=== PATIENT | female | born 1995 | race Caucasian/White ===

== ENCOUNTER 2022-07-20 13:53 | Emergency (ER) | payer SELFPAY ==
--- OUTSIDE RECORDS SUMMARY | 2022-07-20 14:02 | XMS REPORT | Continuity of Care Document ---
:1995 Author Organization [facility] t Address [address] [place] [address] Dr. Santiago [address] [place] [address] Care Team Providers Name Role Phone ALLISON GALVIN Primary Care Physician Unavailable ALLISON GALVIN Attending Clinician Unavailable Allison Galvin MD Attending Clinician Doctor Unassigned, [place] Attending Clinician Unavailable Harry Garcia CRNA Attending Clinician Magdalena Lyon MD Attending Clinician 2, [facility] Attending Clinician Unavailable Cassidy Weir MD Attending Clinician Ultrasound, [facility] Attending Clinician Unavailable Gabbi Escalante MD Attending Clinician 1, [facility] Us Room Attending Clinician Unavailable Zaheer Ramsay MD Attending Clinician ALLISON GALVIN Admitting Clinician Unavailable Allison Galvin MD Admitting Clinician Payers Payer Name Policy Type Policy Number Effective Date Expiration Date S hailey [facility] [id number] 2021 00:00:00 Problems Condition Condition Condition Status Onset Resolution Last Treating Co mments Source Name Details Category Date Date Treatment Clinician Date Term Term Disease Active Univers 9-30 ity of 00:00: [address] Liveborn Liveborn Disease Active Overview: Un sho infant, of , of 9-30 Formattin ity of [place] 00:00: [place] of this [place] , , 00 note Me dical born in born in might be [facility] different by vaginal by vaginal from the delivery delivery original. Vacuum assisted delivery Disease Active Overview: Univers complicate complicate 03-18 Formattin ity of d by d by 00:00: g of this [place] 00 note Medical abnormalit abnormalit might be Branch y y different from the original. Pylectaes is of right kidney (5.6cm).F /u and Growth scheduled for 32 weeks on 05/18 38 weeks 38 weeks Disease Active Unive rs gestation gestation 02-25 ity of of of 00:00: [place] 00 [facility] Branch Supervisio Supervisio Disease Active U nivers n of n of 02-25 ity of high-risk high-risk 00:00: Mari s [facility] with with Branch insufficie insufficie nt nt care in care in third third trimester trimester Allergies, Adverse Reactions, Alerts Allergy Allergy Status Severity Reaction(s) Onset Inactive Treating Comm ents Source Name Type Date Date Clinician NO KNOWN Drug Active Univers ALLERGIE Class ity of S [facility] Social History Social Habit Start Date Stop Date Quantity Comments Source ASSERTION [facility] Exposure to Not sure [facility] SARS-CoV-2 [facility] (event) [place] Alcohol intake 2021-07-29 2021-07-29 Ex-drinker [facility] 00:00:00 00:00:00 (finding) [facility] Tobacco use and 2021-02-25 2021-02-25 Never used Universit y of exposure 00:00:00 00:00:00 [facility] History of 2020-11-16 Smoker [facility] tobacco use 00:00:00 [facility] Sex Ass[birth year] At [birth year] Universit y of 00:00:00 00:00:00 [facility] Smoking Status Start Date Stop Date Source Former smoker 2021-02-25 00:00:00 2021-02-25 00:00:00 [facility] Medications Ordered Filled Start Stop Current Ordering Indication Dosage Frequency Signature Comments Components Source Medication Medication Date Date Medication? Clinician (SIG) Name Name lisdexamfet 2020-09 Yes 50mg Take 50 mg Univers amine 1-10 by mouth ity of (VYVANSE) 13:23: every [place] 50 mg 42 morning. Medical capsule Branch lisdexamfet 2020-09 Yes 50mg Take 50 mg Univers amine 1-10 by mouth ity of (VYVANSE) 13:23: every [place] 50 mg 42 morning. Medical capsule Branch norethindro 2020-09 Yes [id number] .35mg Take 1 Univers ne 0.35 mg 1-10 tablet by ity of tablet 00:00: mouth [place] 00 daily. Medical Branch norethindro 2020-09 Yes [id number] .35mg Take 1 Univers ne 0.35 mg 1-10 tablet by ity of tablet 00:00: mouth [place] 00 daily. Medical Branch 2020-09 Yes Take by [employer] vit 0-20 mouth. ity of calc,iron,f 16:25: [place] [id number] Medical ( Branch VITAMIN ORAL) 2020-09 Yes Take by [employer] vit 0-20 mouth. ity of calc,iron,f 16:25: [address] ( Branch VITAMIN ORAL) 2020-09 Yes Take by [employer] vit 0-20 mouth. ity of calc,iron,f 16:25: [address] ( Branch VITAMIN ORAL) 2020-09 Yes Take by [employer] vit 0-02 mouth. ity of calc,iron,f 14:52: [address] ( Branch VITAMIN ORAL) 2020-09 Yes Take by [employer] vit 0-02 mouth. ity of calc,iron,f 14:52: [address] ([facility] Branch VITAMIN ORAL) ibuprofen 2020-09 Yes [id number] 600mg Take 1 Univers 600 mg 0-02 102 tablet by ity of tablet 00:00: mouth [place] 00 every 6 Medical (six) Branch hours as needed (Pain). Take with food or milk. ferrous 2020-09 Yes [id number] 325mg Take 1 Univers sulfate 325 0-02 102 tablet by ity of mg (65 mg 00:00: mouth 2 [place] iron) 00 (two) Medical tablet times Branch daily. docusate 2020-09 Yes [id number] 240mg Take 1 Univers calcium 240 0-02 102 capsule by it y of mg capsule 00:00: mouth once [place] 00 daily as Medical needed for Branch Constipati on. 2020-09 Yes [id number] 1{tbl} Take 1 Univers vitamin 0-02 102 tablet by ity of w/FA tablet 00:00: mouth [place] 00 daily. Medical Branch ibuprofen 2020-09 Yes [id number] 600mg Take 1 Univers 600 mg 0-02 102 tablet by ity of tablet 00:00: mouth [place] 00 every 6 Medical (six) Branch hours as needed (Pain). Take with food or milk. ferrous 2020-09 Yes [id number] 325mg Take 1 Univers sulfate 325 0-02 102 tablet by ity of mg (65 mg 00:00: mouth 2 [place] iron) 00 (two) Medical tablet times Branch daily. docusate 2020-09 Yes [id number] 240mg Take 1 Univers calcium 240 0-02 102 capsule by it y of mg capsule 00:00: mouth once [place] 00 daily as Medical needed for Branch Constipati on. 2020-09 Yes [id number] 1{tbl} Take 1 Univers vitamin 0-02 102 tablet by ity of w/FA tablet 00:00: mouth [place] 00 daily. Medical Branch ibuprofen 2020-09 Yes [id number] 600mg Take 1 Univers 600 mg 0-02 102 tablet by ity of tablet 00:00: mouth [place] 00 every 6 Medical (six) Branch hours as needed (Pain). Take with food or milk. ferrous 2020-09 Yes [id number] 325mg Take 1 Univers sulfate 325 0-02 102 tablet by ity of mg (65 mg 00:00: mouth 2 [place] iron) 00 (two) Medical tablet times Branch daily. docusate 2020-09 Yes [id number] 240mg Take 1 Univers calcium 240 0-02 102 capsule by it y of mg capsule 00:00: mouth once [place] 00 daily as Medical needed for Branch Constipati on. 2020-09 Yes [id number] 1{tbl} Take 1 Univers vitamin 0-02 102 tablet by ity of w/FA tablet 00:00: mouth [place] 00 daily. Medical Branch ibuprofen 2020-09 Yes [id number] 600mg Take 1 Univers 600 mg 0-02 102 tablet by ity of tablet 00:00: mouth [place] 00 every 6 Medical (six) Branch hours as needed (Pain). Take with food or milk. ferrous 2020-09 Yes [id number] 325mg Take 1 Univers sulfate 325 0-02 102 tablet by ity of mg (65 mg 00:00: mouth 2 [place] iron) 00 (two) Medical tablet times Branch daily. docusate 2020-09 Yes [id number] 240mg Take 1 Univers calcium 240 0-02 102 capsule by it y of mg capsule 00:00: mouth once [place] 00 daily as Medical needed for Branch Constipati on. 2020-09 Yes [id number] 1{tbl} Take 1 Univers vitamin 0-02 102 tablet by ity of w/FA tablet 00:00: mouth [place] 00 daily. Medical Branch ibuprofen 2020-09 Yes [id number] 600mg Take 1 Univers 600 mg 0-02 102 tablet by ity of tablet 00:00: mouth [place] 00 every 6 Medical (six) Branch hours as needed (Pain). Take with food or milk. ferrous 2020-09 Yes [id number] 325mg Take 1 Univers sulfate 325 0-02 102 tablet by ity of mg (65 mg 00:00: mouth 2 [place] iron) 00 (two) Medical tablet times Branch daily. docusate 2020-09 Yes [id number] 240mg Take 1 Univers calcium 240 0-02 102 capsule by it y of mg capsule 00:00: mouth once [place] 00 daily as Medical needed for Branch Constipati on. 2020-09 Yes [id number] 1{tbl} Take 1 Univers vitamin 0-02 102 tablet by ity of w/FA tablet 00:00: mouth [place] 00 daily. Medical Branch HYDROcodone Yes 1{tbl} 1 tablet, Univers -acetaminop 9-30 Oral, ity of hen (NORCO 22:02: Q6HPRN, [place] 5) 5-325 mg 25 Starting Medi tomás tablet 1 on [facility] Branch tablet 06/18/21 at 1702, Until Discontinu ed, Routine, Pain (scale 7-10) ibuprofen Yes 600mg 600 mg, Univ ers (IBU) 9-30 Oral, ity of tablet 600 22:02: Q6HPRN, [place] mg 25 Starting Medical on [facility] Branch 06/18/21 at 1702, Until Discontinu ed, Routine, Pain (scale 4-6) acetaminoph Yes 650mg 650 mg, Un sho en 9-30 Oral, ity of (TYLENOL) 22:02: Q6HPRN, [place] tablet 650 25 Starting Medic al mg on [facility] Branch 06/18/21 at 1702, Until Discontinu ed, Routine, Pain (scale 1-3) diphenhydrA Yes 25mg 25 mg, Univ ers MINE 06-18 Oral, ity of (BENADRYL) 22:02: Q6HPRN, [place] tablet 25 25 Starting Medica l mg on [facility] Branch 06/18/21 at 1702, Until Discontinu ed, Routine, Sleep, Itching ondansetron Yes 4mg 4 mg, Slow Univers (ZOFRAN 06-18 IV Push, ity of (PF)) 22:02: Q8HPRN, [place] injection 4 25 Starting Medi tomás mg on [facility] Branch 06/18/21 at 1702, Until Discontinu ed, Routine, Nausea and Vomiting (N/V) simethicone Yes 160mg 160 mg, Un sho (GAS RELIEF 06-18 Oral, ity of (SIMETHICON 22:02: PC+HSPRN, [place] E)) 25 Starting Medical chewable on [facility] tablet 160 06/18/21 at mg 1702, Until Discontinu ed, Routine, Gas magnesium 0 Yes 30mL 30 mL, Univer s hydroxide 06-18 Oral, ity of (MILK OF 22:02: QDAILYPRN, [place] MAGNESIA) 25 Starting Medica l 400 mg/5 mL on [facility] Branch suspension 06/18/21 at 30 mL 170, Until Discontinu ed, Routine, Constipati on benzocaine- Yes Topical, Un sho menthol 06-18 PRN, ity of (DERMOPLAST 22:02: Starting [place] 20-0.5 % 24 on [facility] Medical topical 06/18/21 at Branch spray 1702, Until Discontinu ed, Routine, Perineum discomfort FENTanyl 2 2020- No Intra-op Un sho mcg/mL + 06-18 ity of bupivacaine 17:26: 00:33 [place] 0.125% in 00 :07 Medical NS 250 mL Branch epidural bag lidocaine-e 2020- No Epidural, Univers pinephrine 06-18 ONCE INTRA it y of (XYLOCAINE 17:26: 00:33 PROCEDURE, [place] W/EPINEPHRI 00 :07 Starting Medi tomás NE) 1.5 on [facility] Branch %-1:200,000 06/18/21 at injection 1226, Until Tue06/18/21 at 1933, Routine, Intra-op LR 1000 mL 2020- No 2mU/min at 6-120 Univers + oxytocin 06-1830 mL/hr, IV ity of 20 units IV 08:42: 22:04 Infusion, [place] Solution 31 :06 TITRATE, Medical Starting Branch on Tue06/18/21 at 0342, Until Tue06/18/21 at 1704, TATIANA D5W-LR IV 2020- No 1000mL at 80 Univ ers infusion 06-1830 mL/hr, IV ity o f 1,000 mL 07:45: 22:04 Infusion, [place] 00 :06 CONTINUOUS Medical , Starting Branch on Tue06/18/21 at 0245, Until Tue06/18/21 at 1704, Routine FENTanyl PF 2020- No 100ug 100 mcg, Univers (SUBLIMAZE 06-18 Slow IV ity o f (PF)) 07:41: 22:04 Push, [place] injection 41 :06 Q1HPRN, Medical 100 mcg Starting Branch on Tue06/18/21 at 0241, Until Tue06/18/21 at 1704, Routine, Pain (scale 7-10) D5W-LR IV 2020- No 1000mL at 125 Uni vers infusion 06-18 mL/hr, IV ity o f 1,000 mL 02:30: 08:30 Infusion, [place] 00 :53 CONTINUOUS Medical , Starting Branch on Tue06/17/21 at 2130, Until Tue06/18/21 at 0330, Routine lactated 2020- No 1000mL at 999 Univ ers ringers IV 06-17 mL/hr, ity of infusion 23:44: 23:45 1,000 mL, [place] 1,000 mL 00 :00 IV Medical Infusion, Branch ONCE, 1 dose, On Tue06/17/21 at 1845, Routine Yes Take by Univer s vit 9-29 mouth. ity of calc,iron,f 17:09: [facility] 48 Medical ( Branch VITAMIN ORAL) Immunizations Ordered Filled Immunization Date Status Comments Sour e Immunization Name Name TD 2021-04-28 Completed University of 00:00:00 [place] [facility] TDAP 2021-04-28 Completed University 00:00:00 [place] [facility] TDAP 2021-04-28 Completed University of 00:00:00 [place] [facility] TDAP 2021-04-28 Completed University 00:00:00 [place] [facility] TDAP 2021-04-28 Completed University of 00:00:00 [facility] Branch TDAP 2021-04-28 Completed University 00:00:00 [facility] Vital Signs Vital Name Observation Time Observation Value Comments Source Systolic blood 2021-07-29 19:16:00 128 mm[Hg] Univer sity of [facility] Diastolic blood 2021-07-29 19:16:00 80 mm[Hg] Unive rsity of [facility] Heart rate 2021-07-29 19:16:00 68 /min [facility] Body temperature 2021-07-29 19:16:00 36.56 [facility] Respiratory rate 2021-07-29 19:16:00 18 /min [facility] Body height 2021-07-29 19:16:00 165.1 cm [facility] Body weight 2021-07-29 19:16:00 67.495 kg [facility] BMI 2021-07-29 19:16:00 24.76 kg/m2 [facility] Systolic blood 2021-07-08 21:18:00 134 mm[Hg] Univer sity of pressure [facility] Diastolic blood 2021-07-08 21:18:00 82 mm[Hg] Unive rsity of pressure [facility] Heart rate 2021-07-08 21:18:00 71 /min [facility] Body temperature 2021-07-08 21:18:00 36.78 [facility] 2021-07-08 21:18:00 18 /min [facility] Body height 2021-07-08 21:18:00 165.1 cm [facility] Body weight 2021-07-08 21:18:00 68.04 kg [facility] BMI 2021-07-08 21:18:00 24.96 kg/m2 [facility] Systolic blood 2021-06-20 13:48:00 130 mm[Hg] Univer sity of pressure [facility] Diastolic blood 2021-06-20 13:48:00 83 mm[Hg] Unive rsity of [facility] Heart rate 2021-06-20 13:48:00 57 /min [facility] Body temperature 2021-06-20 13:48:00 36.39 [facility] Respiratory rate 2021-06-20 13:48:00 16 /min [facility] Oxygen saturation in 2021-06-20 05:14:00 100 /min [facility] Arterial blood by [facility] Pulse oximetry Branch Body height 2021-06-18 08:13:00 165.1 cm [facility] Body weight 2021-06-18 08:13:00 72.122 kg [facility] BMI 2021-06-18 08:13:00 26.46 kg/m2 [facility] Procedures Procedure Date / Time Performing Clinician Source Performed POCT TEST 2021-07-29 19:58:00 Adum, Allison Machado [facility] CONSENT FOR CONTRACEPTION 2021-07-29 06:01:00 Doctor Unassigned, [facility] [place] [facility] CBC WITH DIFF 2021-06-19 07:46:00 Adum, Allison Machado [facility] CENTRAL NEURAXIAL BLOCK 2021-06-18 17:50:32 [facility] OR ARLENE RON - RPR 2021-06-18 08:55:00 [facility] WITH DIFF 2021-06-18 08:54:00 Adum, Allison Machado [facility] HEPATITIS B SURFACE 2021-06-18 08:54:00 Adum, Allison Machado [facility] HIV 1/2 AG-AB WITH REFLEX 2021-06-18 08:54:00 Adum, Allison Machado Un iversity of [facility] HB ABO GROUPING 2021-06-18 08:50:00 Adum, Allison Machado [place] o f [facility] COVID-19 (ID NOW RAPID 2021-06-17 23:13:00 [facility] Medical H[facility] LAB ONLY COVID 2021-06-17 23:13:00 Adum, Allison Machado [place] INTERPRETATION [facility] US BIOPHYSICAL 2021-06-17 23:11:40 Adum, Allison Machado [facility] [place] Encounters Start End Encounter Admission Attending Care Care Encounter Source Date/Time Date/Time Type Type Clinicians Facility Department ID 2021-07-21 Outpatient P RUST JANET [id number] Univers 02:30:38 ity of [facility] 2021-07-29 2021-07-29 Outpatient R ADUM, [facility] [id number] Univers 13:00:00 13:59:11 ALLISON ity of [facility] 2021-07-29 2021-07-29 Routine Adum, RUST [id number] Univers 12:49:55 13:59:11 Allison HIL[place] [id number] ity of Visit [place] [id number] [place] PROFESS[place] [phone] Ar dical NAL [address] [place] [address] 2021-07-29 2021-07-29 Orders Doctor KIRBY 1.2.840.114 [id number] Univers 00:00:00 00:00:00 Only Unassigned, REBECCA [id number] ity of [facility] [id number] [place] [phone] [address] 2021-07-08 2021-07-08 Routine Adum, RUST [id number] Univers 16:03:07 16:45:28 Allison L Ever [id number] ity of Visit [place] [id number] [place] Professio [phone] Ar dical nal [address] [place] [address] 2021-07-08 2021-07-08 Outpatient R ADUM, [facility] [id number] Univers 16:00:00 16:00:00 ALLISON itvickie [facility] 2021-06-17 2021-06-20 Hospital Adum, RUST [id number] Univers 17:09:00 13:58:00 Encounter Allison Hilton [id number] ity of [place] [id number] [facility] [phone] [address] 2021-06-19 2021-06-19 Anesthesia [facility] [id number] Univers 20:02:17 20:02:17 Event Harry Hilton [id number] ity of [place] [id number] [facility] [place] [phone] [address] 2021-06-18 2021-06-18 Anesthesia Harry Garcia RUST [id number] [id number] Univers 12:21:00 19:33:00 Event Magdalena Lyon [id number] ity of [place] [id number] [facility] [phone] [address] 2021-06-17 2021-06-17 Routine Adum, RUST 1.2.840.114 [id number] Univers 16:13:39 16:56:36 Allison Hilton [id number] ity of Visit [place] [id number] [place] [facility] [phone] Ar dical nal [address] [facility] 2021-06-17 2021-06-17 Outpatient R ADUM, [facility] [id number] Univers 16:15:00 16:15:00 ALLISON koo [facility] 2021-06-17 2021-06-17 Orders Doctor ORR 1.2.840.114 [id number] Univers 00:00:00 00:00:00 Only Unassigned, REBECCA [id number] ity of [place] [facility] [id number] [place] [phone] [address] 2021-06-15 2021-06-15 Telephone Adum, RUST [id number] Univers 00:00:00 00:00:00 Allison Jeannette [place] [id number] ity of [place] [id number] [place] Profess[place] [phone] Ar dical nal [address] [facility] 2021-06-09 2021-06-09 Routine Adum, RUST 1.2.840.114 [id number] Univers 16:14:38 17:00:54 Allison Jeannette [place] [id number] ity of Visit [place] [id number] [place] Professio [phone] [facility] [address] [facility] 2021-06-09 2021-06-09 Outpatient R AD, [facility] [id number] Univers 16:15:00 16:15:00 ALLISON ity [facility] 2021-06-04 2021-06-04 Shingles Roofer 2, Adc Lab RUST 1.2.840.114 [id number] Univers 11:02:21 11:17:21 Visit Susie Weiren Stanley [place] [id number] ity of [place] [id number] [place] Profess[place] [phone] Ar dical nal [address] [facility] 2021-06-04 2021-06-04 Outpatient R [facility] [id number] Univers 11:00:00 11:00:00 ity of [facility] 2021-06-03 2021-06-03 Routine Ad, RUST 1.2.840.114 [id number] Univers 16:09:04 16:24:04 Allison Hilton [id number] ity of Visit [place] [id number] [place] Profess[place] [phone] Ar dical nal [address] [facility] 2021-06-03 2021-06-03 Outpatient R ADUM, [facility] [id number] Univers 16:15:00 16:15:00 ALLISON ity [facility] 2021-06-03 2021-06-03 Orders Doctor KIRBY 1.2.840.114 [id number] Univers 00:00:00 00:00:00 Only Unassigned, REBECCA [id number] ity of [place] [facility] [id number] [place] [phone] [address] 2021-06-02 2021-06-02 Outpatient R ADUM, [facility] [id number] Univers 09:15:00 09:15:00 ALLISON ity of [facility] 2021-05-28 2021-05-28 [facility]phone [facility] [id number] Univers 00:00:00 00:00:00 Allison L [place] [id number] ity of [place] [id number] [place] Profess[place] [phone] Ar dical nal [address] [place] [address] 2021-05-28 2021-05-28 Telephone [facility] [id number] Univers 00:00:00 00:00:00 Allison L [place] [id number] ity of [place] [id number] [place] Profess[place] [phone] Ar dical nal [address] [place] [address] 2021-05-27 2021-05-27 Case [facility] 1.2.840.114 [id number] Univers 00:00:00 00:00:00 Management Allison Jeannette [place] [id number] ity of [place] [id number] [place] Profess[place] [phone] Ar dical nal [address] [place] [address] 2021-05-27 2021-05-27 Case [facility] 1.2.840.114 [id number] Univers 00:00:00 00:00:00 Management Allison L [place] [id number] ity of [place] [id number] [place] Profess[place] [phone] Ar dical nal [address] [place] [address] 2021-05-26 2021-05-26 Routine [facility] 1.2.840.114 [id number] Univers 08:12:07 08:55:15 Allison L [place] [id number] ity of Visit [place] [id number] [place] Profess[place] [phone] Ar dical nal [address] [place] [address] 2021-05-26 2021-05-26 Outpatient R ADUM, [facility] [id number] Univers 08:15:00 08:15:00 ALLISON ity of [facility] 2021-05-18 2021-05-18 Shingles Roofer Ultrasound, [facility] 1.2 .840.114 [id number] Univers 13:02:44 13:32:44 Visit Gabbi Escalante [employer] [id number] ity of [facility] [id number] [place] MATERNAL [phone] [facility] & CHILD [address] [place] [address] 2021-05-18 2021-05-18 Shingles Roofer Ultrasound, [facility] 1.2 .840.114 [id number] Univers 13:02:44 13:32:44 Visit Gabbi Escalante [employer] [id number] ity of [facility] [id number] [place] MATERNAL [phone] [facility] & CHILD [address] [place] [address] 2021-05-18 2021-05-18 Outpatient P [facility] [id number] Univers 13:00:00 13:00:00 ity of [facility] 2021-05-12 2021-05-12 Routine Adum, RUST 1.2.840.114 [id number] Univers 11:02:12 11:54:46 Allison L [place] [id number] ity of Visit [place] [id number] [place] Profess[place] [phone] Ar dical nal [address] [place] [address] 2021-05-12 2021-05-12 Routine Adum, RUST 1.2.840.114 [id number] Univers 11:02:12 11:54:46 Allison L [place] [id number] ity of Visit [place] [id number] [place] [phone] Ar dical nal [address] [place] [address] 2021-05-12 2021-05-12 Outpatient R ADUM, [facility] [id number] Univers 11:15:00 11:15:00 ALLISON ity of [facility] 2021-04-28 2021-04-28 Routine Adum, RUST 1.2.840.114 [id number] Univers 11:13:32 11:45:47 Allison L [place] [id number] ity of Visit [place] [id number] [place] Profess[place] [phone] Ar dical nal [address] [place] [address] 2021-04-28 2021-04-28 Shingles Roofer 2, Adc Lab RUST 1.2.840.114 [id number] Univers 10:33:20 10:48:20 Visit Adum, Allison Machado [place] [id number] ity of [place] [id number] [place] Profess[place] [phone] Ar dical nal [address] [place] [address] 2021-04-28 2021-04-28 Outpatient R ADUM, [facility] [id number] Univers 10:30:00 10:30:00 ALLISON ity [facility] 2021-04-08 2021-04-08 Routine Adum, RUST [id number] Univers 09:20:27 10:12:54 Allison L [place] [id number] ity of Visit [place] [id number] [place] Profess[place] [phone] Ar dical nal [address] [place] [address] 2021-04-08 2021-04-08 Outpatient R ADUM, [facility] [id number] Univers 09:15:00 09:15:00 ALLISON ity of [facility] 2021-03-25 2021-03-25 Shingles Roofer 2, Adc Lab RUST 1.2.840.114 [id number] Univers 09:49:49 10:04:49 Visit Adum, Allison L [place] [id number] ity of [place] [id number] [place] [phone] Ar dical nal [address] [place] [address] 2021-03-25 2021-03-25 Routine Adum, RUST [id number] Univers 09:08:09 09:42:11 Allison Machado [place] 350.1.13.10 ity of [place] [phone] [address] 2021-03-25 2021-03-25 Outpatient R ADUM, [facility] [id number] Univers 09:00:00 09:00:00 ALLISON ity of [facility] 2021-03-25 2021-03-25 Orders Doctor KIRBY 1.2.840.114 [id number] Univers 00:00:00 00:00:00 Only Unassigned, REBECCA 350.1.13.10 ity of [place] [facility] 4.2.7.2.686 [place] as [phone] [address] 2021-03-13 2021-03-13 Telephone Adum, RUST [id number] Univers 00:00:00 00:00:00 Allison Jeannette [place] 350.1.13.10 ity of [place] [phone] [address] 2021-03-06 2021-03-06 [facility] [place] 1.2. [id number] [id number] Univers 11:07:18 12:07:18 Visit Zaheer Ramsay [employer] 350.1.13.10 ity of [facility] 4.2.7.2.686 [place] as MATERNAL [phone] [facility] ical & CHILD [address] [place] [address] 2021-03-06 2021-03-06 Outpatient P [facility] [id number] Univers 11:00:00 11:00:00 ity of [facility] 2021-02-25 2021-02-25 Initial Adum, RUST 1.2.840.114 [id number] Univers 09:33:56 10:37:29 Allisonefe Hilton 350.1.13.10 ity [place] [phone] Ar dical nal [address] [facility] 2021-02-25 2021-02-25 Outpatient R MIKAYLA, [facility] [id number] Univers 09:30:00 09:30:00 ALLISON itvickie of [facility] 2021-02-25 2021-02-25 Orders Doctor KIRBY 1.2.840.114 [id number] Univers 00:00:00 00:00:00 Only Unassigned, REBECCA 350.1.13.10 ity of [place] [facility] 4.2.7.2.686 [place] as [phone] [address] Results Test Description Test Time Test Comments Results Result Comments Source POCT TEST 2021-07-29 19:58:00 Test Item Value Reference Range Interpretation Comme nts POCT PREG (test code = 1605) Negative On board controls acceptable with C Line (test code = 3574) Yes POCT PREG LOT # (test code = 3575) POCT PREG TEST DATE (test code = 3576) Lab Interpretation (test code = 49207-2) Normal [facility] with [id number] 08:09:32 Test Item Value Reference Range Interpretation Comments WBC (test code = See_Comment H [Automated 3722-2) message] The system which generated this result transmit radha reference range : 4.30 - 11.10 10*3/?L. The reference range was not used to interpret this result as normal/abnormal . RBC (test code = See_Comment [Automated 299-8) message] The system which generated this result transmit radha reference range : 3.93 - 5.25 10*6/?L. The reference range was not used to interpret this result as normal/abnormal . HGB (test code = 11.7 g/dL 11.6-15.0 718-7) HCT (test code = 34.9 % 35.7-45.2 L 4544-3) MCV (test code = 88.6 fL 80.6-95.5 787-2) MCH (test code = 29.7 pg 25.9-32.8 785-6) MCHC (test code = 33.5 g/dL 31.6-35.1 786-4) RDW-SD (test code = 42.4 fL 39.0-49.9 49328-8) RDW-CV (test code = 13.1 % 12.0-15.5 788-0) PLT (test code = See_Comment [Automated 777-3) message] The system which generated this result transmit radha reference range : 166 - 358 10*3/ ?L. The reference range was not u sed to interpret th is result as normal/abnormal . MPV (test code = 10.5 fL 9.5-12.9 74373-1) NRBC/100 WBC (test See_Comment [Automat ed code = 1569361543) message] The system which generated this result transmit radha reference range : 0.0 - 10.0 /100 WBCs. The reference range was not used to interpret this result as normal/abnormal . NRBC x10^3 (test code <0.01 See_Comment [Auto mated = 6140306694) message] The system which generated this result transmit radha reference range : 10*3/?L. The reference range was not used to interpret this result as normal/abnormal . GRAN MAT (NEUT) % 75.8 % (test code = 770-8) IMM GRAN % (test code 0.70 % = 4716843111) LYMPH % (test code = 15.1 % 736-9) MONO % (test code = 7.2 % 5905-5) EOS % (test code = 0.9 % 713-8) BASO % (test code = 0.3 % 706-2) GRAN MAT x10^3(ANC) 11.81 10*3/uL 1.88-7.09 H (test code = 5448281419) IMM GRAN x10^3 (test 0.11 10*3/uL 0.00-0.06 H code = 4592961196) LYMPH x10^3 (test code 2.36 10*3/uL 1.32-3.29 = 731-0) MONO x10^3 (test code 1.13 10*3/uL 0.33-0.92 H = 742-7) EOS x10^3 (test code = 0.14 10*3/uL 0.03-0.39 711-2) BASO x10^3 (test code 0.04 10*3/uL 0.01-0.07 = 704-7) Lab Interpretation Abnormal (test code = 74183-3) [facility] - [id number] 05:39:31 Test Item Value Reference Range Interpretation Comments RPR (Qualitative) (test code = Nonreactive Nonreactive 12039-2) Lab Interpretation (test code = Normal 28216-4) [facility] Surface [id number] 17:16:44 Test Item Value Reference Range Interpretation Comments HBsAg Semi-Quantitative (test code = Negative Negative 5195-3) [facility] AG-AB WITH [id number] 10:42:56 Test Item Value Reference Range Interpretation Comments HIV Negative Negative Semi-quantitative (test code = 06838-3) HOLLY (test code = Non-reactive for HIV-1 HOLLY) antigen and HIV-1/HIV-2 antibodies. ?No laboratory evidence of HIV infection. ?Repeat in 2-4 weeks if acute HIV infection is suspected. [facility] Screen - ONCE [id number] 10:25:11 Test Item Value Reference Range Interpretation Comments ABO & RH (test code O Positive Performe d at RUST = 20) [facility] [address] [place] [address] Free: [phone] A No. [id number] IAT (test code = Negative Performed a t RUST 1185) [facility] [place], [place] [address]Toll Free: [phone] A No. [id number] [facility] with [id number] 09:46:13 Test Item Value Reference Range Interpretation Comments WBC (test code = See_Comment [Automated message] 1390-2) The system [employer] generated this result transmitted ref erence range: 4.30 - 1 1.10 10*3/?L. The re ference range was not u sed to interpret this result as normal/abnor mal. RBC (test code = See_Comment [Automated message] 029-8) The system [employer] generated this result transmitted ref erence range: 3.93 - 5 .25 10*6/?L. The re ference range was not u sed to interpret this result as normal/abnor mal. HGB (test code = 12.1 g/dL 11.6-15.0 718-7) HCT (test code = 36.2 % 35.7-45.2 4544-3) MCV (test code = 87.9 fL 80.6-95.5 787-2) MCH (test code = 29.4 pg 25.9-32.8 785-6) MCHC (test code = 33.4 g/dL 31.6-35.1 786-4) RDW-SD (test code 41.3 fL 39.0-49.9 = 56255-5) RDW-CV (test code 13.0 % 12.0-15.5 = 788-0) PLT (test code = See_Comment [Automated message] 777-3) The system [employer] h generated this result transmitted ref erence range: 166 - 35 8 10*3/?L. The re ference range was not u sed to interpret this result as normal/abnor mal. MPV (test code = 10.7 fL 9.5-12.9 18019-1) NRBC/100 WBC (test See_Comment [Automat ed message] code = 5817147545) The syste m which generated this result transmitted ref erence range: 0.0 - 10 .0 /100 WBCs. The refer ence range was not u sed to interpret this result as normal/abnor mal. NRBC x10^3 (test <0.01 See_Comment [Automated message] code = 4858893150) The syste m which generated this result transmitted ref erence range: 10*3/?L. The reference range was not used to interpr et this result as normal/abnormal . GRAN MAT (NEUT) % 67.5 % (test code = 770-8) IMM GRAN % (test 0.60 % code = 9321365463) LYMPH % (test code 20.8 % = 736-9) MONO % (test code 9.1 % = 5905-5) EOS % (test code = 1.8 % 713-8) BASO % (test code 0.2 % = 706-2) GRAN MAT 6.34 10*3/uL 1.88-7.09 x10^3(ANC) (test code = 1333634092) IMM GRAN x10^3 0.06 10*3/uL 0.00-0.06 (test code = 6024115469) LYMPH x10^3 (test 1.95 10*3/uL 1.32-3.29 code = 731-0) MONO x10^3 (test 0.85 10*3/uL 0.33-0.92 code = 742-7) EOS x10^3 (test 0.17 10*3/uL 0.03-0.39 code = 711-2) BASO x10^3 (test <0.03 0.01-0.07 code = 704-7) [facility]
[2022-07-20 14:14] LABS: Absolute Lymphocytes (CBC) 0.8 K/uL (0.7-4.9); Hematocrit 40.6 % (36.0-45.0); Lymphocytes % 5.1 % (15.3-44.8); MCV 89.1 fL (80-100); MPV 7.3 fL (7.6-11.3); RBC Red Blood Cell Count 4.56 M/uL (3.86-4.86)
[2022-07-20 14:20] LABS: Protime INR 1.04
[2022-07-20 14:36] LABS: Magnesium 1.7 mg/dL (1.8-2.4); Troponin High Sensitivity 44.1 pg/mL (<58.9)
--- NOTE | 2022-07-20 14:55 | RAD REPORT ---
EXAM DESCRIPTION: CT - Facial Bones W/ Mpr - 07/20/2022 2:23 pm CLINICAL HISTORY: Facial injury status post fall. Facial pain COMPARISON: None TECHNIQUE: Computed axial tomography of the face was obtained. Coronal and sagittal reconstruction w as performed. All CT scans are performed using dose optimization technique as appropriate and may include automated exposure control or mA/KV adjustment according to patient size. FINDINGS: Blowout fracture involves the the medial right floor and medial wall right orbit. Orbital floor fracture depressed 4 millimeters. Fat is herniated into the right maxillary and right ethmoid s inuses. Small portion of the right inferior rectus muscle it appears to enter the herniated fat. Fluid is present within the right maxillary sinus. A TMJ dislocation is not noted. The globes are intact. IMPRESSION: Right orbital floor and medial wall fractures
--- NOTE | 2022-07-20 14:56 | RAD REPORT ---
EXAM DESCRIPTION: CT - Head C Spine Mpr Wo Con - 07/20/2022 2:22 pm CLINICAL HISTORY: Syncope. Head and neck injury status post fall. Head and neck pain COMPARISON: None. TECHNIQUE: Computed axial tomography of the head and cervical spine was obtained. Sagittal and coronal reconstruction was performed. All CT scans are performed using dose optimization technique as appropriate and may include automated exposure control or mA/KV adjustment according to patient size. FINDINGS: An intracranial bleed is not seen. Right basal ganglia calcification The ventricles are normal in caliber. An extra-axial fluid collection is not noted. Fluid right maxil jorge sinus A cervical fracture is not visualized. No dislocation is noted. IMPRESSION: No acute intracranial abnormality is seen. A cervical fracture is not visualized. If the patient continues to have symptoms to suggest intracra nial /spinal cord pathology then MRI would be recommended
--- NOTE | 2022-07-20 15:07 | ER ---
Nurse's Notes [facility] Name: Yary Matamoros Age: 27 yrs Sex: Female : 1995 Arrival Date: 07/20/2022 Time: 13:54 Bed 5 Private MD: Diagnosis: Right open inferior orbit fracture;Altered mental status;facial laceration Presentation: 07/20 13:54 Chief complaint: EMS states: SO reports that pt has been ill w/ N/V/D x 3-4 days, was ph attempting to walk to restroom today and had a syncopal episode, fell and struck R lutheran on corner of table, reports that she had seizure like activity after striking head. , pt awake but drowsy upom arrival to ED, appears confused, oriented to person and place only. Care prior to arrival: IV initiated. 20 GA, in the left antecubital area. Mechanism of Injury: Fall hit R lutheran on corner of table. Trauma event details: Injury occurred in the [facility], Injury occurred: at home. Injury occurred: July 20, 2022. 13:54 Acuity: REGINA 2 ph 13:54 Method Of Arrival: EMS: [facility] ph 14:04 Coronavirus screen:. Ebola Screen: No symptoms or risks identified at this time. ph Initial Sepsis Screen: Does the patient meet any 2 criteria? No. Patient's initial sepsis screen is negative. Does the patient have a suspected source of infection? No. Patient's initial sepsis screen is negative. Risk Assessment: Do you want to hurt yourself or someone else? Patient reports no desire to harm self or others. Onset of symptoms was July 20, 2022. 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 - Social history:: Smoking status: unknown. Screenin:04 Abuse screen: Denies threats or abuse. Denies injuries from another. Nutritional ph screening: No deficits noted. Tuberculosis screening: No symptoms or risk factors identified. Fall Risk Fall in past 12 months (25 points). No secondary diagnosis (0 pts). IV access (20 points). Ambulatory Aid- None/Bed Rest/Nurse Assist (0 pts). Gait- Weak (10 pts.). Mental Status- Oriented to own ability (0 pts). Total York Fall Scale indicates High Risk Score (45 or more points). Fall prevention measures have been instituted. Side Rails Up X 2 Placed Close to Nursing Station Frequent Obs/Assessments Occuring As available patient and family educated on Fall Prevention Program and Strategies. Primary Survey: 14:01 NO uncontrolled hemorrhage observed. A: The client responds to verbal stimuli. Airway: ph patent. Breathing/Chest: Spontaneous respiratory effort, equal unlabored respirations, breath sounds clear bilaterally, regular pattern, symmetrical chest rise and fall. Circulation: No external hemorrhage present. Regular and strong central pulse, skin warm/dry/normal color. Disability Pupils are equal, round, reactive to light and accommodation. Client responds to verbal stimuli. Exposure/Environment: There is no evidence of uncontrolled external bleeding. Obvious injury(ies) are noted at this time: laceration and swelling to R lutheran/eye area. 16:32 Reassessment Alertness and Airway: Airway Patent Breathing: Spontaneous respiratory ph effort, equal unlabored respirations, breath sounds clear bilaterally, regular pattern with symmetrical chest rise and fall. Circulation: No external hemorrhage noted. Regular and strong central pulse, skin warm/dry/normal color. Disability: Verbal stimuli. Secondary Survey: 14:05 HEENT: Head Other swelling/laceration to R lutheran and eye. Musculoskeletal: ph Circulation, motion, and sensation intact. Range of motion: intact in all extremities. Assessment: 13:59 General: Appears in no apparent distress. uncomfortable, Behavior is calm, cooperative, ph appropriate for age. Pain: Complains of pain in right eye and right lutheran. Neuro: Level of Consciousness is awake, obeys commands, confused, Oriented to person, place. Cardiovascular: Capillary refill < 3 seconds in bilateral fingers Patient's skin is warm and dry. Rhythm is sinus rhythm. Respiratory: Airway is patent Respiratory effort is even, unlabored. GI: Reports diarrhea, nausea, vomiting. : No signs and/or symptoms were reported regarding the genitourinary system. Derm: Skin is pink, warm \\T\\ dry. Musculoskeletal: Circulation, motion, and sensation intact. Range of motion: intact in all extremities. Musculoskeletal: Swelling present in right eye and right lutheran. Injury Description: Laceration sustained to right eye and right lutheran. 14:36 Reassessment: Patient appears in no apparent distress at this time. Patient and/or ph family updated on plan of care and expected duration. Pain level reassessed. Pt returned from CT, remains confused, oriented to person and place only. 15:31 Reassessment: Patient appears in no apparent distress at this time. Patient and/or ph family updated on plan of care and expected duration. Pain level reassessed. SO at bedside reports that pt has been vomiting for approx 2 days, states, " She ran to the bathroom today and I heard a crash and I went in there and she was thrashing around and bleeding everywhere. She had thrown up what ;looked like poop." States that she had picked her niece up from school 2 days ago who was ill w/ strep throat. Also states that pt is currently . 16:33 Reassessment: Patient appears in no apparent distress at this time. No changes from previously documented assessment. Patient and/or family updated on plan of care and expected duration. Pain level reassessed. report called to [facility] ER triage. 17:05 Reassessment: Patient appears in no apparent distress at this time. Patient and/or ph family updated on plan of care and expected duration. Pain level reassessed. [facility] at bedside, report given to Paul EMT-P, pt transferred to [facility]. Vital Signs: 14:03 BP 117 / 70; Pulse 93; Resp 18; Temp 98.0; Pulse Ox 98% on R/A; Weight 54.43 kg; Height ph 5 ft. 5 in. (165.10 cm); 14:36 BP 108 / 61; Pulse 104; Resp 16; Pulse Ox 99% on R/A; ph 15:33 BP 110 / 65; Pulse 96; Resp 18; Pulse Ox 100% on R/A; ph 16:33 BP 123 / 67; Pulse 101; Resp 18; Temp 98.0; Pulse Ox 97% on R/A; ph 14:03 Body Mass Index 19.97 (54.43 kg, 165.10 cm) ph Delta Coma Score: 14:03 Eye Response: spontaneous(4). Verbal Response: confused(4). Motor Response: obeys ph commands(6). Total: 14. 14:36 Eye Response: spontaneous(4). Verbal Response: confused(4). Motor Response: obeys ph commands(6). Total: 14. 15:33 Eye Response: to voice(3). Verbal Response: confused(4). Motor Response: obeys ph commands(6). Total: 13. 16:33 Eye Response: to voice(3). Verbal Response: confused(4). Motor Response: obeys ph commands(6). Total: 13. Trauma Score (Adult): 14:03 Eye Response: spontaneous(1); Verbal Response: confused(1); Motor Response: obeys ph commands(2); Systolic BP: > 89 mm Hg(4); Respiratory Rate: 10 to 29 per min(4); Misha Score: 14; Trauma Score: 12 14:36 Eye Response: spontaneous(1); Verbal Response: confused(1); Motor Response: obeys ph commands(2); Systolic BP: > 89 mm Hg(4); Respiratory Rate: 10 to 29 per min(4); Misha Score: 14; Trauma Score: 12 15:33 Eye Response: to voice(0); Verbal Response: confused(1); Motor Response: obeys ph commands(2); Systolic BP: > 89 mm Hg(4); Respiratory Rate: 10 to 29 per min(4); Delta Score: 13; Trauma Score: 11 16:33 Eye Response: to voice(0); Verbal Response: confused(1); Motor Response: obeys ph commands(2); Systolic BP: > 89 mm Hg(4); Respiratory Rate: 10 to 29 per min(4); Delta Score: 13; Trauma Score: 11 ED Course: 13:54 Patient arrived in ED. ph 13:54 Serafin Cool DO is Attending Physician. ms3 13:59 Triage completed. ph 14:04 Arm band placed on. ph 14:04 Patient has correct armband on for positive identification. Bed in low position. Call ph light in reach. Side rails up X2. Client placed on continuous cardiac and pulse oximetry monitoring. NIBP monitoring applied. Door closed. Noise minimized. Warm blanket given. 14:04 Patient maintains SpO2 saturation greater than 95% on room air. Thermoregulation: warm ph blanket given to patient. 14:10 Liliana Sow RN is Primary Nurse. ph 14:10 Maintain EMS IV. Dressing intact. Good blood return noted. Site clean \\T\\ dry. Gauge \\T\\ iw site: 20 LAC. 14:24 CT Head C Spine In Process Unspecified. EDMS 14:24 Facial Bones W/O Con CT In Process Unspecified. EDMS 16:32 No provider procedures requiring assistance completed. Patient transferred, IV remains ph in place. Administered Medications: 16:00 Drug: Zofran (Ondansetron) 4 mg Route: IVP; Site: left antecubital; ph 17:08 Follow up: Response: No adverse reaction ph Medication: 17:08 VIS not applicable for this client. ph Intake: 14:03 PO: 0ml; Total: 0ml. ph Outcome: 15:07 ER care complete, transfer ordered by . ms3 17:06 Transferred by ground EMS [place]. to [facility], Transfer form ph completed. X-rays sent w/ patient. 17:06 Condition: stable 17:06 Instructed on the need for transfer. 17:08 Patient's length of stay in the Emergency Department was greater than 2 hours. due to ph delay calling report to accepting facility, placed on hold multiple timesPatient's length of stay extended due to 17:09 Patient left the ED. ph Signatures: Dispatcher [employer] Judy Lin RN RN iw Liliana Sow RN RN ph Serafin Cool DO DO ms3 Corrections: (The following items were deleted from the chart) 14:07 14:01 A: The client is alert. Airway: patent, ph ph 14:07 14:01 Disability Pupils are equal, round, reactive to light and accommodation. Client ph is alert. ph 17:07 17:07 Patient's length of stay was not longer than 2 hours. ph ph
--- NOTE | 2022-07-20 15:07 | EDPHYS ---
Physician Documentation [facility] Name: Yary Matamoros Age: 27 yrs Sex: Female : 1995 Arrival Date: 07/20/2022 Time: 13:54 Bed 5 Private MD: ED Physician Serafin Cool HPI: 07/20 14:57 This 27 yrs old Female presents to ER via EMS with complaints of Fall Injury. ms3 14:57 Details of fall: The patient fell from an upright position, while standing. Onset: The ms3 symptoms/episode began/occurred just prior to arrival. Associated injuries: The patient sustained injury to the head, laceration, 4 cm(s), of the right inferior orbit. 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 - Social history:: Smoking status: unknown. ROS: 14:57 Constitutional: Negative for fever, and chills. Neck: Negative for injury, pain, and ms3 swelling, Cardiovascular: Negative for chest pain, and palpitations. Respiratory: Negative for shortness of breath, cough, wheezing, and pleuritic chest pain, Abdomen/GI: Negative for abdominal pain, nausea, vomiting, diarrhea, and constipation, MS/Extremity: Negative for injury and deformity, Skin: Negative for injury, rash, and discoloration. 14:57 All other systems are negative. Exam: 14:53 ECG was reviewed by the Attending Physician. ms3 14:57 Constitutional: This is a well developed, well nourished patient who is awake, alert, ms3 and in no acute distress. 14:57 Neck: Trachea midline, no cervical lymphadenopathy. Supple, full range of motion without nuchal rigidity, or vertebral point tenderness. No Meningismus. Chest/axilla: Normal chest wall appearance and motion. Nontender with no deformity. Cardiovascular: Regular rate and rhythm with a normal S1 and S2. No gallops, murmurs, or rubs. Normal PMI, no JVD. No pulse deficits. Respiratory: Lungs have equal breath sounds bilaterally, clear to auscultation and percussion. No rales, rhonchi or wheezes noted. No increased work of breathing, no retractions or nasal flaring. Abdomen/GI: Soft, non-tender, with normal bowel sounds. No distension or tympany. No guarding or rebound. No evidence of tenderness throughout. MS/ Extremity: Pulses equal, no cyanosis. Neurovascular intact. Full, normal range of motion. 14:57 Head/face: Noted is a laceration(s), that is deep, 4 cm(s), of the right inferior orbit. 14:57 Neuro: Orientation: to person, place, Mentation: Memory: Motor: moves all fours, Sensation: no obvious gross deficits, Gait: not tested. Vital Signs: 14:03 BP 117 / 70; Pulse 93; Resp 18; Temp 98.0; Pulse Ox 98% on R/A; Weight 54.43 kg; Height ph 5 ft. 5 in. (165.10 cm); 14:36 BP 108 / 61; Pulse 104; Resp 16; Pulse Ox 99% on R/A; ph 15:33 BP 110 / 65; Pulse 96; Resp 18; Pulse Ox 100% on R/A; ph 16:33 BP 123 / 67; Pulse 101; Resp 18; Temp 98.0; Pulse Ox 97% on R/A; ph 14:03 Body Mass Index 19.97 (54.43 kg, 165.10 cm) ph Misha Coma Score: 14:03 Eye Response: spontaneous(4). Verbal Response: confused(4). Motor Response: obeys ph commands(6). Total: 14. 14:36 Eye Response: spontaneous(4). Verbal Response: confused(4). Motor Response: obeys ph commands(6). Total: 14. 15:33 Eye Response: to voice(3). Verbal Response: confused(4). Motor Response: obeys ph commands(6). Total: 13. 16:33 Eye Response: to voice(3). Verbal Response: confused(4). Motor Response: obeys ph commands(6). Total: 13. Trauma Score (Adult): 14:03 Eye Response: spontaneous(1); Verbal Response: confused(1); Motor Response: obeys ph commands(2); Systolic BP: > 89 mm Hg(4); Respiratory Rate: 10 to 29 per min(4); [place] Score: 14; Trauma Score: 12 14:36 Eye Response: spontaneous(1); Verbal Response: confused(1); Motor Response: obeys ph commands(2); Systolic BP: > 89 mm Hg(4); Respiratory Rate: 10 to 29 per min(4); [place] Score: 14; Trauma Score: 12 15:33 Eye Response: to voice(0); Verbal Response: confused(1); Motor Response: obeys ph commands(2); Systolic BP: > 89 mm Hg(4); Respiratory Rate: 10 to 29 per min(4); [place] Score: 13; Trauma Score: 11 16:33 Eye Response: to voice(0); Verbal Response: confused(1); Motor Response: obeys ph commands(2); Systolic BP: > 89 mm Hg(4); Respiratory Rate: 10 to 29 per min(4); [place] Score: 13; Trauma Score: 11 MDM: 13:54 Patient medically screened. ms3 14:57 Differential diagnosis: abrasion, closed head injury, contusion, fracture, laceration. ms3 16:38 Data reviewed: vital signs, nurses notes, lab test result(s), radiologic studies, and ms3 as a result, I will transfer to higher level of care. Counseling: I had a detailed discussion with the patient and/or guardian regarding: the historical points, exam findings, and any diagnostic results supporting the discharge/admit diagnosis, lab results, radiology results, the need to transfer to another facility, for higher level of care. ED course: Dr Livingston accepts patient. Patient and her understand/ agree with transfer.. 07/20 13:57 Order name: Basic Metabolic Panel; Complete Time: 14:38 ms3 07/20 13:57 Order name: CBC with Diff ms3 07/20 13:59 Order name: Magnesium; Complete Time: 14:38 ms3 07/20 13:59 Order name: Protime (+inr); Complete Time: 14:38 ms3 07/20 13:59 Order name: Ptt, Activated; Complete Time: 14:38 ms3 07/20 13:59 Order name: Troponin High Sensitivity; Complete Time: 14:38 ms3 07/20 13:57 Order name: CT Head C Spine; Complete Time: 15:00 ms3 07/20 13:59 Order name: Labs collected and sent; Complete Time: 14:14 ms3 07/20 13:59 Order name: EKG; Complete Time: 14:00 ms3 07/20 13:59 Order name: Cardiac monitoring; Complete Time: 14:07 ms3 07/20 14:01 Order name: Facial Bones W/O Con CT; Complete Time: 15:00 ms3 07/20 14:17 Order name: Glucose, Ancillary Testing; Complete Time: 14:38 EDMS 07/20 15:55 Order name: SARS RAPID; Complete Time: 16:54 em1 07/20 13:59 Order name: EKG - Nurse/Tech; Complete Time: 14:57 ms3 07/20 13:59 Order name: IV Saline Lock; Complete Time: 14:07 ms3 07/20 13:59 Order name: NPO; Complete Time: 14:07 ms3 07/20 13:59 Order name: O2 Per Protocol; Complete Time: 14:07 ms3 07/20 13:59 Order name: O2 Sat Monitoring; Complete Time: 14:07 ms3 EC:53 Rate is 85 beats/min. Rhythm is regular. QRS [place] is Normal. [place] interval is normal. QRS ms3 interval is normal. QT interval is normal. Clinical impression: Normal ECG. Interpreted by me. Reviewed by me. Administered Medications: 16:00 Drug: Zofran (Ondansetron) 4 mg Route: IVP; Site: left antecubital; ph 17:08 Follow up: Response: No adverse reaction ph Disposition Summary: 07/20/22 15:07 Transfer Ordered Transfer Location: [facility] ms3 Reason: Higher level of care ms3 Condition: Stable ms3 Problem: new ms3 Symptoms: are unchanged ms3 Accepting Physician: Dr Livingston(07/20/22 17:09) ph Diagnosis - Right open inferior orbit fracture ms3 - Altered mental status ms3 - facial laceration ms3 Forms: - Medication Reconciliation Form ms3 - SBAR form ms3 Signatures: Dispatcher [employer] Liliana Irwin RN RN ph Serafin Colo DO DO ms3 Corrections: (The following items were deleted from the chart) 16:39 15:07 Dr eva velasquez 17:09 16:39 Dr Livingston ms3 ph
[2022-07-20] MEDS ORDERED: ONDANSETRON 4 MG/2 ML VIAL ONE (15:52)
[2022-07-20 16:52] LABS: SARS-CoV-2 Antigen Rapid Res Negative (Negative)
[2022-07-20 17:14] VITALS: TEMP 98
[2022-07-20 17:17] LABS: Blood Morphology Comment NOT SEEN (NOT SEEN); Platelet Estimate ADEQ; Toxic Granulation 1+
[2022-07-20 17:18] VITALS: BP 123/67; O2SAT 97
--- NOTE | 2022-07-22 06:02 | EKG ---
Test Date: 2022-07-20 Test Time: 14:53:13 Public Safety Director: PH MEASUREMENT RESULTS: Intervals: Rate: 85 LA: 138 QRSD: 76 QT: 374 QTc: 445 [place]: P: 64 LA: 138 QRS: 57 T: 52 INTERPRETIVE STATEMENTS: Normal sinus rhythm Normal ECG No previous ECG available for comparison Electronically Signed On 07-22-22 06:00:01 CDT by Karlos Moore
== END 2022-07-20 17:09 | disposition short-term general hospital (02) ==
LOC: ER 13:53
DX: S02.85XB Fracture of orbit, unspecified, initial encounter for open fracture (principal); R41.82 Altered mental status, unspecified
CPT/HCPCS: 36415; 70450; 70486; 72125; 76377; 80048; 82947; 83735; 84484; 85025; 85610; 85730; 87811; 93005; 96374; 99285; J2405

== ENCOUNTER 2023-07-10 10:37 | Emergency (ER) | payer OTHER ==
--- OUTSIDE RECORDS SUMMARY | 2023-07-10 10:40 | XMS REPORT | Continuity of Care Document ---
:1995 Author Organization [facility] t Address [address] [place] [address] [place] [id number] Care Team Providers Name Role Phone Unknown, Physician Primary Care Physician Unavailable PARAM MOYA Attending Clinician Unavailable PARAM MOYA Attending Clinician Unavailable HEATHER ESPINAL Attending Clinician Unavailable Heather Espinal DO Attending Clinician Param Moya MD Attending Clinician GC[facility]_C Attending Clinician Unavailable Padilla Diallo MD Attending Clinician PADILLA DIALLO Attending Clinician Unavailable ALLISON GALVIN Attending Clinician Unavailable SOHAM SURESH Attending Clinician Unavailable NIMA FERRARI Attending Clinician Unavailable JAS LLANOS Attending Clinician Unavailable Allison Galvin MD Attending Clinician Doctor Unassigned, [place] Attending Clinician Unavailable Harry Garcia CRNA Attending Clinician Magdalena Lyon MD Attending Clinician 2, [facility] Attending Clinician Unavailable Ultrasound, Ang-Mfm Attending Clinician Unavailable Gabbi Escalante MD Attending Clinician 1, Pea-Mfm Us Room Attending Clinician Unavailable Zaheer Ramsay MD Attending Clinician ALLISON GALVIN Admitting Clinician Unavailable GC[facility]C Admitting Clinician Unavailable PADILLA DIALLO Admitting Clinician Unavailable Padilla Diallo MD Admitting Clinician Allison Galvin MD Admitting Clinician Payers Payer Name Policy Type Policy Number Effective Date Expiration Date Paul hart [facility] MEDICAID STAR [id number] 2021 00:00:[address] [facility] [id number] 2021 00:00:00 [id number] 2022 CHOICE [place] STAR 00:00:00 [id number] CHOICE (MEDICAID 00:00:00 [place]PLAC[place] - [place] [id number] [place] Problems Condition Condition Condition Status Onset Resolution Last Treating Co mments Source Name Details Category Date Date Treatment Clinician Date 41 weeks 41 weeks Disease Active Unive rs gestation gestation 5-04 ity of of of 00:00: [place] 00 [facility] Normal Normal Disease Active Univers labor labor 5-04 ity of 00:00: [address] Closed Closed Disease Active 2021-09 Last [place] fracture fracture 09-26 Assessmen Hea lt of orbit of orbit 00:00: t & Plan: with with 00 Formattin routine routine g of this healing healing note might be different from the original. Full motility with no enophthal mos. CT reviewed - fairly small right orbit floor fracture. Will observe. Term Term Disease Active Univers 06-18 ity of 00:00: [address] Liveborn Liveborn Disease Active Overview: Un sho , of infant, of 9-30 Formattin ity of tor[place] 00:00: [place] , , 00 note Me dical born in born in might be [facility] different by vaginal by vaginal from the delivery delivery original. Vacuum assisted delivery Disease Active Overview: Univers complicate complicate 6-30 Formattin ity of d by d by 00:00: g of this [place] 00 note Medical abnormalit abnormalit might be Branch y y different from the original. Pylectaes is of right kidney (5.6cm).F /u and Growth scheduled for 32 weeks on 05/18 38 weeks 38 weeks Disease Active Unive rs gestation gestation 02-25 ity of of of 00:00: [place] 00 [facility] Branch Supervisio Supervisio Disease Active U nivers n of n of 02-25 ity of high-risk high-risk 00:00: Mari vela 00 [facility] with with Branch insufficie insufficie nt nt care in care in third third trimester trimester No No Disease Active Univers 02-25 ity of care in care in 00:00: [place] current current 00 Medical Bran ch in third in third trimester trimester Allergies, Adverse Reactions, Alerts Allergy Allergy Status Severity Reaction(s) Onset Inactive Treating Comm ents Source Name Type Date Date Clinician NO KNOWN Drug Active Univers ALLERGIE Class ity of S [facility] Social History Social Habit Start Date Stop Date Quantity Comments Source ASSERTION [facility] Sexual orientation Univer [facility] Alcohol intake 2023-07-05 2023-07-05 Ex-drinker University 00:00:00 00:00:00 (finding) [facility] Exposure to 2023-01-10 2023-01-20 Not sure [facility] SARS-CoV-2 (event) 00:00:00 17:25:00 [facility] Tobacco use and 2023-01-20 2023-01-20 Smokeless Universit y of exposure 00:00:00 00:00:00 tobacco non-user [facility] History of Social 2021-07-29 2021-07-29 Univers ity of function 00:00:00 00:00:00 [facility] History of tobacco 2020-11-16 Cigarette Smoker University of use 00:00:00 [facility] Sex Assigned At [birth year] [facility] 00:00:00 00:00:00 Smoking Status Start Date Stop Date Source Ex-smoker 2023-01-20 00:00:00 2023-01-20 [place] [facility] [place] 00:00:00 [facility] Tobacco smoking [facility] consumption unknown Medications Ordered Filled Start Stop Current Ordering Indication Dosage Frequency Signature Comments Components Source Medication Medication Date Date Medication? Clinician (SIG) Name Name ibuprofen 2022-09 600mg 600 mg, Uni vers (IBU) 0-17 10-17 Oral, ity of tablet 600 16:15: 16:14 ONCE, 1 [place] mg 00 :00 dose, On Medical Tue Branch 07/05/23 at 1115, [place]AT[place] NaCl 0.9% 2022-09 No 1000mL at 999 Uni vers (NS) bolus 0-17 10-17 mL/hr, ity of infusion 15:45: 16:11 1,000 mL, [place] 1,000 mL 00 :00 IV Medical Infusion, Branch ONCE, 1 dose, On e 07/05/23 at 1045, [place] levETIRAcet 2022-09 No 1000mg 1,000 mg, Univers am (KEPPRA) 007-05 IV ity of in NACL 15:00: 16:00 Piggyback, [place] (ISO-OS) 00 :00 ONCE, 1 Medical 1,000 dose, On Branch mg/100 mL [facility] RTU 07/05/23 at 1000, Administer over 15 Minutes, 100 mL levETIRAcet 2022-09- Yes [id number] 1000mg Take 1 Univers am (KEPPRA) 0-05 08- tablet by it y of 1,000 mg 00:00: 05:59 [place] tablet 00 :00 the Medical morning Branch and 1 tablet in the evening. Do all this for 30 days. levETIRAcet 2022-09- Yes [id number] 1000mg Take 1 Univers am (KEPPRA) 0-17 -17 tablet by it y of 1,000 mg 00:00: 05:59 [place] tablet 00 :00 the Medical morning Branch and 1 tablet in the evening. Do all this for 30 days. 2022- No Take by Unive rs vit 5-05 05-05 mouth. ity of calc,iron,f 11:27: 00:00 [place] olic 30 :00 Medical ( Branch VITAMIN ORAL) lisdexamfet 2022- No 50mg Take 50 mg Univers amine 5-05 05-05 by mouth ity of (VYVANSE) 11:27: 00:00 every [place] 50 mg 30 :00 morning. Medical capsule Branch Yes [id number] 1{tbl} Take 1 Univers vitamin 5-05 tablet by ity of w/FA tablet 00:00: mouth in [place] 00 the Medical morning. Branch docusate 2022-0 Yes [id number] 200mg Take 2 U nivers 100 mg 5-05 capsules ity of capsule 00:00: by mouth [place] 00 once daily Medical as needed Branch for Constipati on. ferrous 2022-0 Yes [id number] 325mg Take 1 Un sho sulfate 325 5-05 tablet by ity of mg (65 mg 00:00: mouth [place] iron) 00 the Medical tablet morning Branch and 1 tablet in the evening. ibuprofen 2022-0 Yes [id number] 600mg Take 1 Univers 600 mg 5-05 tablet by ity of tablet 00:00: mouth [place] 00 every 6 Medical (six) Branch hours as needed (Pain). Take with food or milk. 2022-0 Yes [id number] 1{tbl} Take 1 Univers vitamin 5-05 tablet by ity of w/FA tablet 00:00: mouth in [place] 00 the Medical morning. Branch docusate 0 Yes [id number] 200mg Take 2 U nivers 100 mg 5-05 capsules ity of capsule 00:00: by mouth [place] 00 once daily Medical as needed Branch for Constipati on. ferrous 2022-0 Yes [id number] 325mg Take 1 Un sho sulfate 325 5-05 tablet by ity of mg (65 mg 00:00: mouth [place] iron) 00 the Medical tablet morning Branch and 1 tablet in the evening. ibuprofen 2022-0 Yes [id number] 600mg Take 1 Univers 600 mg 5-05 tablet by ity of tablet 00:00: mouth [place] 00 every 6 Medical (six) Branch hours as needed (Pain). Take with food or milk. 2022-0 Yes [id number] 1{tbl} Take 1 Univers vitamin 5-05 tablet by ity of w/FA tablet 00:00: mouth in [place] 00 the Medical morning. Branch docusate 2022-0 Yes [id number] 200mg Take 2 U nivers 100 mg 5-05 capsules ity of capsule 00:00: by mouth [place] 00 once daily Medical as needed Branch for Constipati on. ferrous 2022-0 Yes [id number] 325mg Take 1 Un sho sulfate 325 5-05 tablet by ity of mg (65 mg 00:00: mouth [place] iron) 00 the Medical tablet morning Branch and 1 tablet in the evening. ibuprofen 0 Yes [id number] 600mg Take 1 Univers 600 mg 5-05 tablet by ity of tablet 00:00: mouth [place] 00 every 6 Medical (six) Branch hours as needed (Pain). Take with food or milk. 0 Yes [id number] 1{tbl} Take 1 Univers vitamin 5-05 tablet by ity of w/FA tablet 00:00: mouth in [place] 00 the Medical morning. Branch docusate Yes [id number] 200mg Take 2 U nivers 100 mg 5-05 capsules ity of capsule 00:00: by mouth [place] 00 once daily Medical as needed Branch for Constipati on. ferrous 0 Yes [id number] 325mg Take 1 Un sho sulfate 325 5-05 tablet by ity of mg (65 mg 00:00: mouth [place] iron) 00 the Medical tablet morning Branch and 1 tablet in the evening. ibuprofen Yes [id number] 600mg Take 1 Univers 600 mg 5-05 tablet by ity of tablet 00:00: mouth [place] 00 every 6 Medical (six) Branch hours as needed (Pain). Take with food or milk. 0 Yes [id number] 1{tbl} Take 1 Univers vitamin 5-05 tablet by ity of w/FA tablet 00:00: mouth in [place] 00 the Medical morning. Branch docusate Yes [id number] 200mg Take 2 U nivers 100 mg 5-05 capsules ity of capsule 00:00: by mouth [place] 00 once daily Medical as needed Branch for Constipati on. ferrous Yes [id number] 325mg Take 1 Un sho sulfate 325 5-05 tablet by ity of mg (65 mg 00:00: mouth [place] iron) 00 the Medical tablet morning Branch and 1 tablet in the evening. ibuprofen 0 Yes [id number] 600mg Take 1 Univers 600 mg 5-05 tablet by ity of tablet 00:00: mouth [place] 00 every 6 Medical (six) Branch hours as needed (Pain). Take with food or milk. rho(D) 2023-0 Yes 300ug 300 mcg, Univer s immune 5-04 Intramuscu ity of globulin 17:44: lar, ONCE, [place] (RHOGAM) 52 For 1 Medical syringe 300 dose, Branch mcg Conditiona l, Routine witch Papa 0 Yes Topical, Un sho (TUCKS) 50 5-04 Q4HPRN, ity of % topical 17:44: Starting [place] pad 41 on Carla Medical 01/20/23 at Branch 1244, Until Discontinu ed, Routine, rectal/hem orrhoidal pain HYDROcodone 2022-0 Yes 1{tbl} 1 tablet, Univers -acetaminop 5-04 Oral, ity of hen (NORCO 17:44: Q6HPRN, [place] 5) 5-325 mg 41 Starting Medi tomás tablet 1 on [place] Branch tablet 01/20/23 at 1244, Until Discontinu ed, Routine, Pain (scale 7-10) ibuprofen 0 Yes 600mg 600 mg, Univ ers (IBU) 5-04 Oral, ity of tablet 600 17:44: Q6HPRN, [place] mg 41 Starting Medical on [place] Branch 01/20/23 at 1244, Until Discontinu ed, Routine, Pain (scale 4-6) acetaminoph 0 Yes 650mg 650 mg, Un sho en 5-04 Oral, ity of (TYLENOL) 17:44: Q6HPRN, [place] tablet 650 41 Starting Medic al mg on [place] Branch 01/20/23 at 1244, Until Discontinu ed, Routine, Pain (scale 1-3) diphenhydrA 0 Yes 25mg 25 mg, Univ ers MINE 5-04 Oral, ity of (BENADRYL) 17:44: Q6HPRN, [place] tablet 25 41 Starting Medica l mg on [place] Branch 01/20/23 at 1244, Until Discontinu ed, Routine, Sleep, Itching ondansetron 2022-0 Yes 4mg 4 mg, Slow Univers (ZOFRAN 5-04 IV Push, ity of (PF)) 17:44: Q8HPRN, [place] injection 4 41 Starting Medi tomás mg on [place] Branch 01/20/23 at 1244, Until Discontinu ed, Routine, Nausea and Vomiting (N/V) simethicone Yes 160mg 160 mg, Un sho (GAS RELIEF 5-04 Oral, ity of (SIMETHICON 17:44: PC+HSPRN, [place] E)) 41 Starting Medical chewable on [facility] Branch tablet 160 01/20/23 at mg 1244, Until Discontinu ed, Routine, Gas docusate Yes 200mg 200 mg, Unive rs (COLACE) 5-04 Oral, ity of capsule 200 17:44: QDAILYPRN, [place] mg 41 Starting Medical on [place] Branch 01/20/23 at 1244, Until Discontinu ed, Routine, Constipati on magnesium Yes 30mL 30 mL, Univer s hydroxide -04 Oral, ity of (MILK OF 17:44: QDAILYPRN, [place] MAGNESIA) 41 Starting Medica l 400 mg/5 mL on [facility] suspension 01/20/23 at 30 mL 1244, Until Discontinu ed, Routine, Constipati on benzocaine- Yes Topical, Un sho menthol 5-04 PRN, ity of (DERMOPLAST 17:44: Starting [place] ) 20-0.5 % 41 on [facility] Medical topical 01/20/23 at Branch spray 1244, Until Discontinu ed, Routine, Perineum discomfort FENTanyl PF No 100ug 100 mcg, Univers (SUBLIMAZE 01-20 05-04 Slow IV ity o f (PF)) 17:30: 17:17 Push, [place] injection 00 :00 ONCE, 1 Medical 100 mcg dose, On Branch Carla 01/20/23 at 1230, Routine erythromyci 2021-09 Yes [facility] (Romycin) 1-02 Health 5 MG/GM 00:00: ophthalmic 00 ointment erythromyci 2021-09 Yes [facility] n (Romycin) 1-02 Health 5 MG/GM 00:00: ophthalmic 00 ointment lisdexamfet 2020-09 Yes 50mg Take 50 mg Univers amine 1-10 by mouth ity of (VYVANSE) 13:23: every [place] 50 mg 42 morning. Medical capsule Branch lisdexamfet 2020-09 Yes 50mg Take 50 mg Univers amine 1-10 by mouth ity of (VYVANSE) 13:23: every [place] 50 mg 42 morning. Medical capsule Branch norethindro 2020-09 Yes [id number] .35mg Take 1 Univers ne 0.35 mg 1-10 tablet by ity of tablet 00:00: mouth [place] 00 daily. Medical Branch norethindro 2020-09 Yes [id number] .35mg Take 1 Univers ne 0.35 mg 1-10 tablet by ity of tablet 00:00: mouth [place] 00 daily. Medical Branch norethindro 2020-093- No [id number] .35mg Take 1 Univers ne 0.35 mg 1-10 05-05 tablet by ity of tablet 00:00: 00:00 mouth [place] 00 :00 daily. Medical Branch 2020-09 Yes Take by [email or web address] vit 0-20 mouth. ity of calc,iron,f 16:25: [place] [address] Medical ( Branch VITAMIN ORAL) 2020-09 Yes Take by [email or web address] vit 0-20 mouth. ity of calc,iron,f 16:25: [place] [address] Medical ( Branch VITAMIN ORAL) 2020-09 Yes Take by [email or web address] vit 0-20 mouth. ity of calc,iron,f 16:25: [place] [address] Medical ( Branch VITAMIN ORAL) 2020-09 Yes Take by [email or web address] vit 0-02 mouth. ity of calc,iron,f 14:52: [address] ( Branch VITAMIN ORAL) 2020-09 Yes Take by [email or web address] vit 0-02 mouth. ity of calc,iron,f 14:52: [place] [address] Medical ( Branch VITAMIN ORAL) ibuprofen 2020-09 Yes [id number] 600mg Take 1 Univers 600 mg 0-02 102 tablet by ity of tablet 00:00: mouth [place] 00 every 6 Medical (six) Branch hours as needed (Pain). Take with food or milk. ferrous 2020-09 Yes [id number] 325mg Take 1 Univers sulfate 325 0-02 102 tablet by ity of mg (65 mg 00:00: mouth 2 [place] iron) 00 (two) Medical tablet times Branch daily. docusate 2020-09 Yes [id number] 240mg Take 1 Univers calcium 240 0-02 102 capsule by it y of mg capsule 00:00: mouth once [place] 00 daily as Medical needed for Branch Constipati on. 2020-09 Yes [id number] 1{tbl} Take 1 Univers vitamin 0-02 102 tablet by ity of w/FA tablet 00:00: mouth [place] 00 daily. Medical Branch ibuprofen 2020-09 Yes [id number] 600mg Take 1 Univers 600 mg 0-02 102 tablet by ity of tablet 00:00: mouth [place] 00 every 6 Medical (six) Branch hours as needed (Pain). Take with food or milk. ferrous 2020-09 Yes [id number] 325mg Take 1 Univers sulfate 325 0-02 102 tablet by ity of mg (65 mg 00:00: mouth 2 [place] iron) 00 (two) Medical tablet times Branch daily. docusate 2020-09 Yes [id number] 240mg Take 1 Univers calcium 240 0-02 102 capsule by it y of mg capsule 00:00: mouth once [place] 00 daily as Medical needed for Branch Constipati on. 2020-09 Yes [id number] 1{tbl} Take 1 Univers vitamin 0-02 102 tablet by ity of w/FA tablet 00:00: mouth [place] 00 daily. Medical Branch ibuprofen 2020-09 Yes [id number] 600mg Take 1 Univers 600 mg 0-02 102 tablet by ity of tablet 00:00: mouth [place] 00 every 6 Medical (six) Branch hours as needed (Pain). Take with food or milk. ferrous 2020-09 Yes [id number] 325mg Take 1 Univers sulfate 325 0-02 102 tablet by ity of mg (65 mg 00:00: mouth 2 [place] iron) 00 (two) Medical tablet times Branch daily. docusate 2020-09 Yes [id number] 240mg Take 1 Univers calcium 240 0-02 102 capsule by it y of mg capsule 00:00: mouth once [place] 00 daily as Medical needed for Branch Constipati on. 2020-09 Yes [id number] 1{tbl} Take 1 Univers vitamin 0-02 102 tablet by ity of w/FA tablet 00:00: mouth [place] 00 daily. Medical Branch ibuprofen 2020-09 Yes [id number] 600mg Take 1 Univers 600 mg 0-02 102 tablet by ity of tablet 00:00: mouth [place] 00 every 6 Medical (six) Branch hours as needed (Pain). Take with food or milk. ferrous 2020-09 Yes [id number] 325mg Take 1 Univers sulfate 325 0-02 102 tablet by ity of mg (65 mg 00:00: mouth 2 [place] iron) 00 (two) Medical tablet times Branch daily. docusate 2020-09 Yes [id number] 240mg Take 1 Univers calcium 240 0-02 102 capsule by it y of mg capsule 00:00: mouth once [place] 00 daily as Medical needed for Branch Constipati on. 2020-09 Yes [id number] 1{tbl} Take 1 Univers vitamin 0-02 102 tablet by ity of w/FA tablet 00:00: mouth [place] 00 daily. Medical Branch ibuprofen 2020-09 Yes [id number] 600mg Take 1 Univers 600 mg 0-02 102 tablet by ity of tablet 00:00: mouth [place] 00 every 6 Medical (six) Branch hours as needed (Pain). Take with food or milk. ferrous 2020-09 Yes [id number] 325mg Take 1 Univers sulfate 325 0-02 102 tablet by ity of mg (65 mg 00:00: mouth 2 [place] iron) 00 (two) Medical tablet times Branch daily. docusate 2020-09 Yes [id number] 240mg Take 1 Univers calcium 240 0-02 102 capsule by it y of mg capsule 00:00: mouth once [place] 00 daily as Medical needed for Branch Constipati on. 2020-09 Yes [id number] 1{tbl} Take 1 Univers vitamin 0-02 102 tablet by ity of w/FA tablet 00:00: mouth [place] 00 daily. Medical Branch ibuprofen 2020-09- No [id number] 600mg Take 1 Univers 600 mg 0-02 05-05 102 tablet by ity of tablet 00:00: 00:00 mouth [place] 00 :00 every 6 Medical (six) Branch hours as needed (Pain). Take with food or milk. ferrous 2020-09- No [id number] 325mg Take 1 Univers sulfate 325 0-02 05-05 102 tablet by it y of mg (65 mg 00:00: 00:00 mouth 2 [place] iron) 00 :00 (two) Medical tablet times Branch daily. docusate 2020-09- No [id number] 240mg Take 1 Univers calcium 240 0-02 05-05 102 capsule by i ty of mg capsule 00:00: 00:00 mouth once [place] 00 :00 daily as Medical needed for Branch Constipati on. 2020-09- No [id number] 1{tbl} Take 1 Univers vitamin 0-02 05-05 102 tablet by ity of w/FA tablet 00:00: 00:00 mouth [place] 00 :00 daily. Medical Branch HYDROcodone Yes 1{tbl} 1 tablet, Univers -acetaminop 06-18 Oral, ity of hen (NORCO 22:02: Q6HPRN, [place] 5) 5-325 mg 25 Starting Medi tomás tablet 1 on [facility] Branch tablet 06/18/21 at 1702, Until Discontinu ed, Routine, Pain (scale 7-10) ibuprofen Yes 600mg 600 mg, Univ ers (IBU) 06-18 Oral, ity of tablet 600 22:02: Q6HPRN, [place] mg 25 Starting Medical on [place] Branch 06/18/21 at 1702, Until Discontinu ed, Routine, Pain (scale 4-6) acetaminoph Yes 650mg 650 mg, Un sho en 06-18 Oral, ity of (TYLENOL) 22:02: Q6HPRN, [place] tablet 650 25 Starting Medic al mg on [place] Branch 06/18/21 at 1702, Until Discontinu ed, Routine, Pain (scale 1-3) diphenhydrA Yes 25mg 25 mg, Univ ers MINE 06-18 Oral, ity of (BENADRYL) 22:02: Q6HPRN, [place] tablet 25 25 Starting Medica l mg on [place] Branch 06/18/21 at 1702, Until Discontinu ed, Routine, Sleep, Itching ondansetron 0 Yes 4mg 4 mg, Slow Univers (ZOFRAN 06-18 IV Push, ity of (PF)) 22:02: Q8HPRN, [place] injection 4 25 Starting Medi tomás mg on [place] Branch 06/18/21 at 1702, Until Discontinu ed, Routine, Nausea and Vomiting (N/V) simethicone Yes 160mg 160 mg, Un sho (GAS RELIEF 06-18 Oral, ity of (SIMETHICON 22:02: PC+HSPRN, [place] E)) 25 Starting Medical chewable on [facility] tablet 160 06/18/21 at mg 170, Until Discontinu ed, Routine, Gas magnesium Yes 30mL 30 mL, Univer s hydroxide 06-18 Oral, ity of (MILK OF 22:02: QDAILYPRN, [place] MAGNESIA) 25 Starting Medica l 400 mg/5 mL on [facility] suspension 06/18/21 at 30 mL 170, Until Discontinu ed, Routine, Constipati on benzocaine- Yes Topical, Un sho menthol 06-18 PRN, ity of (DERMOPLAST 22:02: Starting [place] 20-0.5 % 24 on [facility] Medical topical 06/18/21 at Branch spray 170, Until Discontinu ed, Routine, Perineum discomfort FENTanyl 2 2020- No Intra-op Un sho mcg/mL + 06-18 ity of bupivacaine 17:26: 00:33 [place] 0.125% in 00 :07 Medical NS 250 mL Branch epidural bag lidocaine-e 2020- No Epidural, Univers pinephrine 06-18 ONCE INTRA it y of (XYLOCAINE 17:26: 00:33 PROCEDURE, [place] W/EPINEPHRI 00 :07 Starting Medi tomás NE) 1.5 on [facility] %-1:200,000 06/18/21 at injection 1226, Until [place]la 06/18/21 at 1933, Routine, Intra-op LR 1000 mL 2020- No 2mU/min at 6-120 Univers + oxytocin 06-18 09-30 mL/hr, IV ity of 20 units IV 08:42: 22:04 Infusion, [place] Solution 31 :06 TITRATE, Medical Starting Branch on Carla 06/18/21 at 0342, Until [place] 06/18/21 at 1704, [place] D5W-LR IV 2020- No 1000mL at 80 Univ ers infusion 06-18 09-30 mL/hr, IV ity o f 1,000 mL 07:45: 22:04 Infusion, [place] 00 :06 CONTINUOUS Medical , Starting Branch on Carla 06/18/21 at 0245, Until [place] 06/18/21 at 1704, Routine FENTanyl PF 2020- No 100ug 100 mcg, Univers (SUBLIMAZE 06-18 Slow IV ity o f (PF)) 07:41: 22:04 Push, [place] injection 41 :06 Q1HPRN, Medical 100 mcg Starting Branch on [place]la 06/18/21 at 0241, Until [place] 06/18/21 at 1704, Routine, Pain (scale 7-10) D5W-LR IV 2020- No 1000mL at 125 Uni vers infusion 06-18 mL/hr, IV ity o f 1,000 mL 02:30: 08:30 Infusion, [place] 00 :53 CONTINUOUS Medical , Starting Branch on Tue06/17/21 at 2130, Until [place] 06/18/21 at 0330, Routine lactated 2020- No 1000mL at 999 Univ ers ringers IV 06-17 mL/hr, ity of infusion 23:44: 23:45 1,000 mL, [place] 1,000 mL 00 :00 IV Medical Infusion, Branch ONCE, 1 dose, On Tue06/17/21 at 1845, Routine Yes Take by Univer s vit 06-17 mouth. ity of calc,iron,f 17:09: Kwaku ralph 47 Medical ( Branch VITAMIN ORAL) Immunizations Ordered Filled Date Status Comments Source Immunization Name Immunization Name TDAP 2021-04-28 Completed University of 00:00:00 [facility] TDAP 2021-04-28 Completed University of 00:00:00 [facility] TDAP 2021-04-28 Completed University of 00:00:00 [facility] TDAP 2021-04-28 Completed University of 00:00:00 [facility] TDAP 2021-04-28 Completed University of 00:00:00 [facility] TDAP 2021-04-28 Completed University of 00:00:00 [facility] TDAP 2021-04-28 Completed University of 00:00:00 [facility] TDAP 2021-04-28 Completed University of 00:00:00 [facility] TDAP Unknown Completed [facility] TDAP Unknown Completed [facility] TDAP Unknown Completed [facility] Vital Signs Vital Name Observation Time Observation Value Comments Source Systolic blood 2023-07-05 16:00:00 109 mm[Hg] Univer sity of pressure [place] [facility] Branch Diastolic blood 2023-07-05 16:00:00 60 mm[Hg] Unive rsity of pressure [facility] Heart rate 2023-07-05 16:00:00 64 /min Universi ty of [facility] Respiratory rate 2023-07-05 16:00:00 22 /min Univ ersity of [facility] Oxygen saturation in 2023-07-05 16:00:00 100 /min University of Arterial blood by [place] [employer] tomás Pulse oximetry Branch Body temperature 2023-07-05 14:48:00 37.5 Mary Univ ersity of [facility] Body height 2023-07-05 14:48:00 165.1 cm Universi ty of [place] [facility] Body weight 2023-07-05 14:48:00 58.968 kg Universi ty of [facility] BMI 2023-07-05 14:48:00 21.63 kg/m2 Universi ty of [facility] Systolic blood 2023-01-21 17:28:00 139 mm[Hg] Univer sity of pressure [facility] Branch Diastolic blood 2023-01-21 17:28:00 84 mm[Hg] Unive rsity of pressure [facility] Body temperature 2023-01-21 17:23:00 37.11 [place] Univ ersity of [place] [facility] Heart rate 2023-01-21 13:17:00 80 /min Universi ty of [facility] Respiratory rate 2023-01-21 13:17:00 18 /min Univ ersity of [facility] Oxygen saturation in 2023-01-21 13:17:00 98 /min University of Arterial blood by [place] [employer] tom[facility] Pulse oximetry Branch Body height 2023-01-20 16:15:00 165.1 cm [facility] Body weight 2023-01-20 16:15:00 78.472 kg [facility] BMI 2023-01-20 16:15:00 28.79 kg/m2 [facility] Body height 2022-07-26 21:14:00 167.6 cm [facility] weight 2022-07-26 21:14:00 68[facility]182 [facility] BMI 2022-07-26 21:14:00 24.26 kg/m2 [facility] Systolic blood 2021-07-29 19:16:00 128 mm[Hg] [facility] Diastolic blood 2021-07-29 19:16:00 80 mm[Hg] [facility] Heart rate 2021-07-29 19:16:00 68 /min [facility] Body temperature 2021-07-29 19:16:00 36.56 Mary [facility] Respiratory rate 2021-07-29 19:16:00 18 /min [facility] Body height 2021-07-29 19:16:00 165.1 cm [facility] Body weight 2021-07-29 19:16:00 67.495 kg [facility] BMI 2021-07-29 19:16:00 24.76 kg/m2 [facility] Systolic blood 2021-07-08 21:18:00 134 mm[Hg] [facility] Diastolic blood 2021-07-08 21:18:00 82 mm[Hg] [facility] Heart rate 2021-07-08 21:18:00 71 /min [facility] Body temperature 2021-07-08 21:18:00 36.78 Mary [facility] Respiratory rate 2021-07-08 21:18:00 18 /min [facility] Body height 2021-07-08 21:18:00 165.1 cm [facility] Body weight 2021-07-08 21:18:00 68.04 kg [facility] BMI 2021-07-08 21:18:00 24.96 kg/m2 [facility] Systolic blood 2021-06-20 13:48:00 130 mm[Hg] [facility] Diastolic blood 2021-06-20 13:48:00 83 mm[Hg] [facility] Heart rate 2021-06-20 13:48:00 57 /min [facility] Body temperature 2021-06-20 13:48:00 36.39 [facility] Respiratory rate 2021-06-20 13:48:00 16 /[facility] O[facility] saturation in 2021-06-20 05:14:00 100 /min [facility] Arterial blood by [facility] Pulse oximetry Branch Body height 2021-06-18 08:13:00 165.1 cm [facility] Body weight 2021-06-18 08:13:00 72.122 kg [facility] BMI 2021-06-18 08:13:00 26.46 kg/m2 [facility] Procedures Procedure Date / Time Performing Clinician Source Performed CT HEAD WO CONTRAST 2023-07-05 15:19:53 Heather Espinal [facility] COMP. METABOLIC PANEL 2023-07-05 15:02:00 Heather Espinal [facility] ([id number]) [facility] CBC WITH DIFF 2023-07-05 15:02:00 Heather Espinal [facility] LACTIC ACID WHOLE BLOOD 2023-07-05 15:02:00 Heather Espinal [facility] CONSENT/REFUSAL FOR 2023-07-05 14:52:47 Doctor Unassigned, [facility] DIAGNOSIS AND TREATMENT [place] [facility] CONSENT/REFUSAL FOR 2023-07-05 14:39:53 Doctor Unassigned, [facility] DIAGNOSIS AND TREATMENT [place] [facility] URINE DRUG (IMMUNOASSAY) 2023-01-20 16:54:00 Padilla Diallo [facility] DRUG [facility] SCREEN CBC WITH DIFF 2023-01-20 16:54:00 Padilla Diallo [facility] HEPATITIS B SURFACE 2023-01-20 16:54:00 Padilla Diallo [facility] ANTIGEN [facility] HB ABO GROUPING 2023-01-20 16:54:00 Padilla Diallo [facility] RHO (D) IMMUNE GLOBULIN 2023-01-20 16:54:00 [facility] ADC OR ARLENE ONLY - RPR 2023-01-20 16:54:00 [facility]/2 AG-AB WITH REFLEX 2023-01-20 16:54:00 Padilla Diallo [facility] CONSENT/REFUSAL FOR 2023-01-20 16:04:53 Doctor Unassigned, [facility] 2021-07-29 19:58:00 Adum, Allison Machado [facility] CONSENT FOR CONTRACEPTION 2021-07-29 06:01:00 Doctor Unassigned, [facility] [place] [facility] CBC WITH DIFF 2021-06-19 07:46:00 Adum, Allison Machado [facility] CENTRAL NEURAXIAL BLOCK 2021-06-18 17:50:32 Harry Garcia Un [facility] ADC OR ARLENE ONLY - RPR 2021-06-18 08:55:00 Adum, [facility] CBC WITH DIFF 2021-06-18 08:54:00 Adum, Allison Machado [facility] HEPATITIS B SURFACE 2021-06-18 08:54:00 [facility] HIV 1/2 AG-AB WITH REFLEX 2021-06-18 08:54:00 Adum, Allison Bruner [facility] HB ABO GROUPING 2021-06-18 08:50:00 Adum, Allison Machado [facility] COVID-19 (ID NOW RAPID 2021-06-17 23:13:00 Adum, Allison Machado [facility] TESTING) [facility] LAB ONLY COVID 2021-06-17 23:13:00 Adum, Allison Machado [facility] INTERPRETATION [facility] US BIOPHYSICAL 2021-06-17 23:11:40 Adum, Allison Machado [facility] Encounters Start End Encounter Admission Attending Care Care Encounter Source Date/Time Date/Time Type Type Clinicians Facility Department ID 2022-09-[address] [facility] [id number] [place] 16:01:14 [id number] [facility] 2022-08-[address] [facility] [id number] [place] 15:56:30 [id number] [facility] 2022-08-[address] [facility] [id number] CT 16:24:48 [id number] [facility] 2022-07-[address] [facility] [id number] CT 07:50:42 [id number] [facility] 2022-07-[address] [facility] [id number] CT 10:18:11 [id number] [facility] 2021-07-21 Outpatient P [facility] JANET [id number] Univers 02:30:38 ity [facility] 2023-07-29 2023-07-29 Outpatient R KARENPARAM [facility] [id number] Univers 14:40:00 14:40:[address] [facility] 2023-07-05 2023-07-05 Emergency X TEDDY [facility] ERT [id number] Univers 09:50:00 11:24:[address] [facility] 2023-07-05 2023-07-05 [facility] 1.2.840.114 [id number] Univers 09:50:00 11:24:00 Heather HILTON [id number] ity [place] [id number] [address] 2023-07-05 2023-07-05 Telephone [facility] 1.2.840.114 [id number] Univers 00:00:00 00:00:00 [facility] [id number] ity of [place] 4.2.7.2.686 Lup[place] as ZOEY?BLEA [id number] [address] 2023-07-05 2023-07-05 Telephone [facility] 1.2.840.114 [id number] Univers 00:00:00 00:00:00 [facility] [id number] [place] of [place] 4.2.7.2.686 [place] as ZOEY?BLEA [id number] [address] 2023-03-30 2023-03-30 Outpatient GC_CPC_Corr PRIV PRIV [id number] [facility] 00:00:00 00:00:00 ales_C [id number] Medica l 2023-03-29 2023-03-29 Outpatient GC_[facility]_Corr PRIV PRIV [id number] [facility] 00:00:00 00:00:00 ales_C [id number] Medica l 2023-01-26 2023-01-26 Telephone Padilla Diallo [facility] 1.2.840.114 [id number] Univers 00:00:00 00:00:00 [facility] 350.1.13.10 i [facility] 4.2.7.2.686 [facility] [id number] Id dical [address] 2023-01-20 2023-01-21 Inpatient X PADILLA DIALLO [facility] JANET [id number] Univers 11:17:00 16:35:00 [facility] 2023-01-20 2023-01-21 [facility] Padilla Diallo [facility] 1.2.840.114 [id number] Univers 11:17:00 16:35:00 Encounter Stanley HILTON 350.1.13.10 ity [facility] 4.2.7.2.686 [facility] [phone] [address] 2022-10-08 2022-10-08 Outpatient R ADUM, [facility] [id number] Univers 14:00:00 14:00:00 [facility] 2022-09-21 2022-09-21 Outpatient KERWIN, [facility] [id number] [place] 13:00:00 13:00:00 [facility]22-[facility]10 2022-09-10 Outpatient R ADUM, [facility] [id number] Univers 10:00:00 10:00:00 [facility] 2022-09-07 2022-09-[address] [facility] [id number] [place] 13:30:00 13:30:00 [facility] 2022-07-29 2022-07-[address] [facility] [id number] [place] 14:30:00 14:30:00 [facility] 2022-07-27 2022-07-27 Office PRAVIN Ferrari 6400 1.2.840.114 [id number] [place] 13:00:00 13:50:[address] 350.1.13.58 Health 9.2.7.2.686 [id number] 4 2022-07-26 2022-07-26 Office Jas Llanos [id number] 15:15:00 15:41:[address] 350.1.13.58 Health 9.2.7.2.686 [id number] 2021-07-29 2021-07-29 Outpatient R AD, [facility] [id number] Univers 13:00:00 13:59:11 ALLISON ity [facility] 2021-07-29 2021-07-29 [facility] 1.2.840.114 [id number] Univers 12:49:55 13:59:11 Allison Machado ANGLERAPHAEL 350.1.13.10 it[place] of [place] [phone] Id dical NAL [address] [place] [address] 2021-07-29 2021-07-29 Orders Doctor KIRBY 1.2.840.114 [id number] Univers 00:00:00 00:00:00 Only Unassigned, REBECCA 350.1.13.10 ity of [place] [facility] 4.2.7.2.686 [place] as [id number] [address] 2021-07-08 2021-07-08 [facility] 1.2.840.114 [id number] Univers 16:03:07 16:45:28 Allison L [place] 350.1.13.10 [place] [phone] Id dical nal [address] [place] [address] 2021-07-08 2021-07-08 Outpatient R AD, [facility] [id number] Univers 16:00:00 16:00:00 ALLISON itvickie [facility] 2021-06-17 2021-06-20 Hospital Ad, [facility] 1.2.840.114 [id number] Univers 17:09:00 13:58:00 Encounter Allison Machado [place] 350.1.13.10 [place] [id number] [facility] 083 Branch 2021-06-19 2021-06-19 Anesthesia Radha [facility] 1.2.840.114 [id number] Univers 20:02:17 20:02:17 Event Harry Andrew [place] 350.1.13.10 [place] [id number] [facility] 083 Branch 2021-06-18 2021-06-18 Anesthesia Harry Garcia [facility] 1.2.8 40.114 [id number] Univers 12:21:00 19:33:00 Event LyonMagdalena vela [place] 350.1.13.10 [place] [id number] [facility] 083 Alpha 2021-06-17 2021-06-17 Routine Adum, [facility] 1.2.840.114 [id number] Univers 16:13:39 16:56:36 Allison Machado [place] 350.1.13.10 ity [place] [phone] Id dicrenu [address] 2021-06-17 2021-06-17 Outpatient R ADUM, [facility] [id number] Univers 16:15:00 16:15:00 ALLISON ity of [facility] 2021-06-17 2021-06-17 Orders Doctor ORR 1.2.840.114 [id number] Univers 00:00:00 00:00:00 Only Unassigned, REBECCA 350.1.13.10 ity of [place] [facility] 4.2.7.2.686 [place] [phone] [place] [address] Branch 2021-06-15 2021-06-15 Telephone Adum, [facility] 1.2.161.895 [id number] Univers 00:00:00 00:00:00 Allison Jeannette [place] 350.1.13.10 [place] [phone] Id dical nal [address] [facility] 2021-06-09 2021-06-09 Routine Adum, [facility] 1.2.840.114 [id number] Univers 16:14:38 17:00:54 Allison Hilton 350.1.13.10 [place] of [place] [phone] Id dical nal 134 [facility] 2021-06-09 2021-06-09 Outpatient R ADUM, [facility] [id number] Univers 16:15:00 16:15:00 ALLISON ity of [facility] 2021-06-04 2021-06-04 Safety And Security Officer 2, Adc Lab [facility] 1.2.840.114 [id number] Univers 11:02:21 11:17:21 Visit Padilla Diallo [place] 350.1.13.10 it[place] of [place] [phone] Id dical nal 353 [facility] 2021-06-04 2021-06-04 Outpatient R [facility] [id number] Univers 11:00:00 11:00:00 ity of [facility] 2021-06-03 2021-06-03 Routine Ad, [facility] 1.2.840.114 [id number] Univers 16:09:04 16:24:04 Allison Hilton 350.1.13.10 [place] [phone] Id dical nal [address] [place] [address] 2021-06-03 2021-06-03 Outpatient R ADUM, [facility] [id number] Univers 16:15:00 16:15:00 ALLISON ity of [facility] 2021-06-03 2021-06-03 Orders Doctor ORR 1.2.840.114 [id number] Univers 00:00:00 00:00:00 Only Unassigned, REBECCA 350.1.13.10 ity of [place] [facility] 4.2.7.2.686 [place] as [id number] [address] 2021-06-02 2021-06-02 Outpatient R ADUM, [facility] [id number] Univers 09:15:00 09:15:00 ALLISON ity of [facility] 2021-05-28 2021-05-28 [facility]phone [facility] [id number] Univers 00:00:00 00:00:00 Allison L [place] 350.1.13.10 ity of [place] [phone] Id dical nal [address] [place] [address] 2021-05-28 2021-05-28 Telephone Ad, [facility] [id number] Univers 00:00:00 00:00:00 Allison L [place] 350.1.13.10 ity of [place] [phone] Id dical nal [address] [place] [address] 2021-05-27 2021-05-27 [facility] 1.2.840.114 [id number] Univers 00:00:00 00:00:00 Management Allison L [place] 350.1.13.10 it[place] of [place] [phone] Id dical nal [address] [place] [address] 2021-05-27 2021-05-27 Case Ad, [facility] 1.2.840.114 [id number] Univers 00:00:00 00:00:00 Management Allison L [place] 350.1.13.10 [place] of [place] [phone] Id dical nal [address] [place] [address] 2021-05-26 2021-05-26 Routine Ad, [facility] 1.2.840.114 [id number] Univers 08:12:07 08:55:15 Allison L [place] 350.1.13.10 ity of [place]2.[place] [phone] Id dical nal [address] [place] [address] 2021-05-26 2021-05-26 Outpatient R ADUM, [facility] [id number] Univers 08:15:00 08:15:00 ALLISON ity of [facility] 2021-05-18 2021-05-18 Safety And Security Officer Ultrasound, [facility] 1.2 .840.114 [id number] Univers 13:02:44 13:32:44 Visit Berkley Escalanteta COURTROOM REPORTER 350.1.13.10 ity [facility] 4.2.7.2.686 Lupillo as MATERNAL [phone] [facility] [address] [place] [address] 2021-05-18 2021-05-18 Safety And Security Officer Ultrasound[facility] 1.2 .840.114 [id number] Univers 13:02:44 13:32:44 Visit Escalante Gabbi COURTROOM REPORTER 350.1.13.10 ity of [facility] 4.2.7.2.686 [place]up[place] as MATERNAL [phone] [address] 2021-05-18 2021-05-18 Outpatient P [facility] [id number] Univers 13:00:00 13:00:00 ity of [facility] 2021-05-12 2021-05-12 Routine Adum, [facility] 1.2.840.114 [id number] Univers 11:02:12 11:54:46 Allison L [place] 350.1.13.10 [place] [phone] Id dic[address] 2021-05-12 2021-05-12 Routine Adum, [facility] 1.2.840.114 [id number] Univers 11:02:12 11:54:46 Allison L [place] 350.1.13.10 [place] [phone] Id dical nal [address] [place] [address] 2021-05-12 2021-05-12 Outpatient R ADUM, [facility] [id number] Univers 11:15:00 11:15:00 ALLISON ity [facility] 2021-04-28 2021-04-28 Routine Adum, [facility] 1.2.840.114 [id number] Univers 11:13:32 11:45:47 Allison L [place] 350.1.13.10 [place] [phone] Id dical nal 134 [facility] 2021-04-28 2021-04-28 Safety And Security Officer 2, Adc Lab [place] 1.2.840.114 [id number] Univers 10:33:20 10:48:20 Visit Adum, Allison Machado [place] 350.1.13.10 [place] of [place].2.[place] [phone] Id dical nal [address] [place] [address] 2021-04-28 2021-04-28 Outpatient R ADUM, [facility] [id number] Univers 10:30:00 10:30:00 ALLISON ity of [facility] 2021-04-08 2021-04-08 Routine Adum, [facility] 1.2.840.114 [id number] Univers 09:20:27 10:12:54 Allison L [place] 350.1.13.10 [place]y [place] [phone] Id dical nal [address] [place] [address] 2021-04-08 2021-04-08 Outpatient R ADUM, [facility] [id number] Univers 09:15:00 09:15:00 ALLISON ity of [facility] 2021-03-25 2021-03-25 Safety And Security Officer 2, Adc Lab [place] 1.2.840.114 [id number] Univers 09:49:49 10:04:49 Visit Adum, Allison [place] 350.1.13.10 ity of [place] [phone] Id dical nal [address] [place] [address] 2021-03-25 2021-03-25 Routine Adum, [facility] 1.2.840.114 [id number] Univers 09:08:09 09:42:11 Allison L [place] 350.1.13.10 ity [place].2.[place] [phone] Id dical nal [address] [place] [address] 2021-03-252021-03-25 Outpatient R ADUM, [facility] [id number] Univers 09:00:00 09:00:00 ALLISON koo of [facility] 2021-03-25 2021-03-25 Orders Doctor KIRBY 1.2.840.114 [id number] Univers 00:00:00 00:00:00 Only Unassigned, REBECCA 350.1.13.10 ity of [place] [facility] 4.2.7.2.686 [place] as [phone] [address] 2021-03-13 2021-03-13 Telephone Adum, [facility] 1.2.290.060 [id number] Univers 00:00:00 00:00:00 Allison Hilton 350.1.13.10 it[place] of [place] [phone] Id dical nal [address] [place] [address] 2021-03-06 2021-03-06 Safety And Security Officer 1[facility] 1.2. 840.114 [id number] Univers 11:07:18 12:07:18 Visit Zaheer Ramsay COURTROOM REPORTER 350.1.13.10 ity of [facility] 4.2.7.2.686 [place]up[place] as MATERNAL [phone] Med ical & CHILD [address] [place] [address] 2021-03-06 2021-03-06 Outpatient P [facility] [id number] Univers 11:00:00 11:00:00 ity of [facility] 2021-02-25 2021-02-25 Initial Adum, [facility] 1.2.840.114 [id number] Univers 09:33:56 10:37:29 Allison Hilton 350.1.13.10 ity of [place] [phone] Id dical nal [address] [place] [address] 2021-02-25 2021-02-25 Outpatient R ADUM, [facility] [id number] Univers 09:30:00 09:30:00 ALLISON koo [facility] 2021-02-25 2021-02-25 Orders Doctor ORR 1.2.840.114 [id number] Univers 00:00:00 00:00:00 Only Unassigned, REBECCA 350.1.13.10 ity of [place] [facility] 4.2.7.2.686 [place] as [phone] [place] [address] Branch Results Test Description Test Time Test Comments Results Result Comments Source COMP. METABOLIC PANEL (85126) 2023-07-05 15:45:43 Test Item Value Reference Range Interpretation Comme nts NA (test code = 2249665944) 138 mmol/L 135-145 K (test code = 8110334650) 4.3 mmol/L 3.5-5.0 CL (test code = 7501502374) 104 mmol/L 98-108 CO2 TOTAL (test code = 9605492889) 25 mmol/L 23-31 AGAP (test code = 9452204244) 9 2-16 BUN (test code = 6812278570) 8 mg/dL 7-23 GLUCOSE (test code = 4786398495) 112 mg/dL 70-110 H CREATININE (test code = 0.83 mg/dL 0.50-1.04 3074356088) TOTAL BILI (test code = 0.4 mg/dL 0.1-1.7 2466099513) CALCIUM (test code = 2947399686) 10.4 mg/dL 8.6-10.6 T PROTEIN (test code = 7531239841) 8.5 g/dL 6.3-8.2 H ALBUMIN (test code = 3918555372) 4.9 g/dL 3.5-5.0 ALK PHOS (test code = 1773923083) 77 U/L 34-122 ALTv (test code = 1742-6) 14 U/L 5-35 AST(SGOT) (test code = 8011862779) 24 U/L 13-40 eGFR (test code = 1589326392) 81.3 mL/min/1.73m2 HOLLY (test code = HOLLY) Association of Glomerular Filtration Rate (GFR) and Staging of Kidney Disease* + +-------- + ------+| GFR (mL/min/1.73 m2) ?| With Kidney Damage ?| ?Without Kidney Damage+ +-- + +| ?>90 ?| ?Stage one ?| ? Normal ?+ +------- + -------+| ?60-89 ?| ?Stage two ?| ? Decreased GFR ? + +-------- + ------+| ?30-59 ?| ?Stage three ?| ? Stage three ? + +-------- + ------+| ?15-29 ?| ?Stage four ? | ? Stage four ?+ +------- + -------+| ?<15 (or dialysis) ? ?| ?Stage five ? | ? Stage five ?+ +------- + -------+ *Each stage assumes the associated GFR level has been in effect for at least three months. ?Stages 1 to 5, with or without kidney disease, indicate chronic kidney disease. Notes: Determination of stages one and two (with eGFR >59mL/min/1.73 m2) requires estimation of kidney damage for at least three months as defined by structural or functional abnormalities of the kidney, manifested by either:Pathological abnormalities or Markers of kidney damage (including abnormalities in the composition of the blood or urine or abnormalities in imaging tests). Lab Interpretation (test code = Abnormal 62231-6) General acute hospital WITH [id number] 15:26:43 Test Item Value Reference Range Interpretation Comments WBC (test code = 12.39 See_Comment H [Automated 8332-2) message] The sy stem which generated this result transmitted reference range : 4.30 - 11.10 10*3/?L. The reference range was not used to interpret this result as normal/abnormal . RBC (test code = 4.78 See_Comment [Automated 386-8) message] The sy stem which generated this result transmitted reference range : 3.93 - 5.25 10*6/?L. The reference range was not used to interpret this result as normal/abnormal . HGB (test code = 14.2 g/dL 11.6-15.0 718-7) HCT (test code = 42.5 % 35.7-45.2 4544-3) MCV (test code = 88.9 fL 80.6-95.5 787-2) MCH (test code = 29.7 pg 25.9-32.8 785-6) MCHC (test code = 33.4 g/dL 31.6-35.1 786-4) RDW-SD (test code = 45.2 fL 39.0-49.9 32930-3) RDW-CV (test code = 13.9 % 12.0-15.5 788-0) PLT (test code = 422 See_Comment H [Automated 777-3) message] The sy stem which generated this result transmitted reference range : 166 - 358 10*3/ ?L. The reference r esme was not used to interpret this result as normal/abnormal . MPV (test code = 9.4 fL 9.5-12.9 L 98261-1) NRBC/100 WBC (test 0.0 See_Comment [Automat ed code = 7203995466) message] The system which generated this result transmitted reference range : 0.0 - 10.0 /100 WBCs. The refer ence range was not u sed to interpret th is result as normal/abnormal . NRBC x10^3 (test code See_Comment [Auto mated = [id number]) message] The s ystem which generated this result transmitted reference range : 10*3/?L. The reference range was not used to interpret this result as normal/abnormal . GRAN MAT (NEUT) % 78.4 % (test code = 770-8) IMM GRAN % (test code 0.20 % = [id number]) LYMPH % (test code = 16.5 % 736-9) MONO % (test code = 4.4 % 5905-5) EOS % (test code = 0.2 % 713-8) BASO % (test code = 0.3 % 706-2) GRAN MAT x10^3(ANC) 9.71 10*3/uL 1.88-7.09 H (test code = [id number]) IMM GRAN x10^3 (test 0.03 10*3/uL 0.00-0.06 code = [id number]) LYMPH x10^3 (test code 2.04 10*3/uL 1.32-3.29 = 731-0) MONO x10^3 (test code 0.54 10*3/uL 0.33-0.92 = 742-7) EOS x10^3 (test code = 0.03 10*3/uL 0.03-0.39 711-2) BASO x10^3 (test code 0.04 10*3/uL 0.01-0.07 = 704-7) Lab Interpretation Abnormal (test code = 21211-6) [id number] 15:11:11 Test Item Value Reference Range Interpretation Comments LACTIC ACID (test code = 1.31 mmol/L 0.50-2.20 [id number]) Lab Interpretation (test code = Normal 82040-6) [facility] IMMUNE [id number] 19:04:10 Test Item Value Reference Range Interpretation Comments RHIG CANDIDATE? No- see comment Patient i s not a (test code = candidate for R [facility]- 5188) Patient is Rh Positive.Perfor med at [facility] Laboratory Services - [facility] Blood [address] [place], [place] [address]Toll Free: [phone] A No. [id number] [facility] [id number] 19:58:00 Test Item Value Reference Range Interpretation Comments POCT PREG (test code = 1605) Negative On board controls acceptable with C Yes Line (test code = 3574) POCT PREG LOT # (test code = 3575) POCT PREG TEST DATE (test code = 3576) Lab Interpretation (test code = Normal 60992-1) General acute hospital with [id number] 08:09:32 Test Item Value Reference Range Interpretation Comments WBC (test code = See_Comment H [Automated 9553-2) message] The system which generated this result transmit radha reference range : 4.30 - 11.10 10*3/?L. The reference range was not used to interpret this result as normal/abnormal . RBC (test code = See_Comment [Automated 844-8) message] The system which generated this result [...] RDW-SD (test code = 42.4 fL 39.0-49.9 00787-1) RDW-CV (test code = 13.1 % 12.0-15.5 788-0) PLT (test code = See_Comment [Automated 777-3) message] The system which generated this result transmit radha reference range : 166 - 358 10*3/ ?L. The reference range was not u sed to interpret th is result as normal/abnormal . MPV (test code = 10.5 fL 9.5-12.9 69885-7) NRBC/100 WBC (test See_Comment [Automat ed code = 6166272870) message] The system which generated this result transmit radha reference range : 0.0 - 10.0 /100 WBCs. The reference range was not used to interpret this result as normal/abnormal . NRBC x10^3 (test code <0.01 See_Comment [Auto mated = [id number]) message] The system which generated this result transmit radha reference range : 10*3/?L. The reference range was not used to interpret this result as normal/abnormal . GRAN MAT (NEUT) % 75.8 % (test code = 770-8) IMM GRAN % (test code 0.70 % = 1187932565) LYMPH % (test code = 15.1 % 736-9) MONO % (test code = 7.2 % 5905-5) EOS % (test code = 0.9 % 713-8) BASO % (test code = 0.3 % 706-2) GRAN MAT x10^3(ANC) 11.81 10*3/uL 1.88-7.09 H (test code = 3207730145) IMM GRAN x10^3 (test 0.11 10*3/uL 0.00-0.06 H code = 8790301870) LYMPH x10^3 (test code 2.36 10*3/uL 1.32-3.29 = 731-0) MONO x10^3 (test code 1.13 10*3/uL 0.33-0.92 H = 742-7) EOS x10^3 (test code = 0.14 10*3/uL 0.03-0.39 711-2) BASO x10^3 (test code 0.04 10*3/uL 0.01-0.07 = 704-7) Lab Interpretation Abnormal (test code = 54116-6) [facility] - [id number] 05:39:31 Test Item Value Reference Range Interpretation Comments RPR (Qualitative) (test code = Nonreactive Nonreactive 02447-5) Lab Interpretation (test code = Normal 23908-7) [facility] HospitalHepatitis B Surface [id number] 17:16:44 Test Item Value Reference Range Interpretation Comments HBsAg Semi-Quantitative (test code = Negative Negative 5195-3) [facility]HIV [facility]/2 AG-AB WITH [id number] 10:42:56 Test Item Value Reference Range Interpretation Comments HIV Negative Negative Semi-quantitative (test code = 39149-3) HOLLY (test code = Non-reactive for HIV-1 HOLLY) antigen and HIV-1/HIV-2 antibodies. ?No laboratory evidence of HIV infection. ?Repeat in 2-4 weeks if acute HIV infection is suspected. [facility] HospitalType and Screen - ONCE [id number] 10:25:11 Test Item Value Reference Range Interpretation Comments ABO & RH (test code O Positive Performe d at [facility] = 20) Laboratory Serv [facility] [place], [place] [address]Toll Free: [phone] A No. [id number] IAT (test code = Negative Performed a t [facility] 1185) Laboratory Serv [facility] [address] [place], [place] [address]Toll Free: [phone] A No. [id number] [facility] HospitalCBC with [id number] 09:46:13 Test Item Value Reference Range Interpretation Comments WBC (test code = See_Comment [Automated message] 6690-2) The system [employer] generated this result transmitted ref erence range: 4.30 - 1 1.10 10*3/?L. The re ference range was not u sed to interpret this result as normal/abnor mal. RBC (test code = See_Comment [Automated message] 789-8) The system [employer] generated this result transmitted ref erence range: [...] RDW-SD (test code 41.3 fL 39.0-49.9 = 74576-0) RDW-CV (test code 13.0 % 12.0-15.5 = 788-0) PLT (test code = See_Comment [Automated message] 777-3) The system [employer] generated this result transmitted ref erence range: 166 - 35 8 10*3/?L. The re ference range was not u sed to interpret this result as normal/abnor mal. MPV (test code = 10.7 fL 9.5-12.9 09349-5) NRBC/100 WBC (test See_Comment [Automat ed message] code = 6791593218) The [employer] which generated this result transmitted ref erence range: 0.0 - 10 .0 /100 WBCs. The refer ence range was not u sed to interpret this result as normal/abnor mal. NRBC x10^3 (test <0.01 See_Comment [Automated message] code = 0620526883) The syste m which generated this result transmitted ref erence range: 10*3/?L. The reference range was not used to interpr et this result as normal/abnormal . GRAN MAT (NEUT) % 67.5 % (test code = 770-8) IMM GRAN % (test 0.60 % code = 6723808227) LYMPH % (test code 20.8 % = 736-9) MONO % (test code 9.1 % = 5905-5) EOS % (test code = 1.8 % 713-8) BASO % (test code 0.2 % = 706-2) GRAN MAT 6.34 10*3/uL 1.88-7.09 x10^3(ANC) (test code = 6189177791) IMM GRAN x10^3 0.06 10*3/uL 0.00-0.06 (test code = 7784205871) LYMPH x10^3 (test 1.95 10*3/uL 1.32-3.29 code = 731-0) MONO x10^3 (test 0.85 10*3/uL 0.33-0.92 code = 742-7) EOS x10^3 (test 0.17 10*3/uL 0.03-0.39 code = 711-2) BASO x10^3 (test <0.03 0.01-0.07 code = 704-7) [facility]"
[2023-07-10] MEDS ORDERED: IBUPROFEN 400 MG TAB ONE (11:02)
[2023-07-10] MEDS ORDERED: IBUPROFEN 200 MG TAB PO ONE (11:02)
--- NOTE | 2023-07-10 12:02 | RAD REPORT ---
EXAM DESCRIPTION: RAD - Foot Left 3 View - 07/10/2023 11:29 am CLINICAL HISTORY: PAIN COMPARISON: No comparisons FINDINGS/IMPRESSION: Nondisplaced fracture at the great toe distal phalangeal tuft. No radiopaque fo reign body. No other fractures identified.
--- NOTE | 2023-07-10 12:22 | ER ---
Nurse's Notes [facility] Name: Yary Matamoros Age: 28 yrs Sex: Female : 1995 Arrival Date: 07/10/2023 Time: 10:37 Bed 11 Private MD: Kendell Yee Diagnosis: Nondisplaced fracture of distal phalanx of left great toe Presentation: 07/10 10:56 Chief complaint: Patient states: Piece of metal fell out of car and hit her L great toe hb 20 min [employer]. Coronavirus screen: Vaccine status: Patient reports receiving the 2nd dose of the covid vaccine. Client denies travel out of the [place] in the last 14 days. At this time, the client does not indicate any symptoms associated with coronavirus-19. Ebola Screen: Patient denies travel to an Ebola-affected area in the 21 days before illness onset. Initial Sepsis Screen: Does the patient meet any 2 criteria? No. Patient's initial sepsis screen is negative. Does the patient have a suspected source of infection? Yes: Skin breakdown/wound. Risk Assessment: Do you want to hurt yourself or someone else? Patient reports no desire to harm self or others. Onset of symptoms was July 10, 2023. 10:56 Method Of Arrival: Ambulatory hb 10:56 Acuity: REGINA 4 hb Triage Assessment: 10:58 General: Appears uncomfortable, Behavior is calm, cooperative, appropriate for age. hb Pain: Complains of pain in L great toe Pain currently is 10 out of 10 on a pain scale. Quality of pain is described as aching, throbbing. Derm: abrasion across L great toe Reports. Musculoskeletal: Circulation, motion, and sensation intact. Capillary refill < 3 seconds. Historical: - Allergies: 10:44 No Known Allergies; ll1 - PMHx: 10:57 Seizure; hb - PSHx: 10:44 None; ll1 - Immunization history:: Adult Immunizations up to date, Last tetanus immunization: up to date. - Social history:: Smoking status: Patient reports the use of cigarette tobacco products, denies chronic smoking, but will smoke occasionally. Screenin:00 [facility] ED Fall Risk Assessment (Adult) Score/Fall Risk Level 0 - 2 = Low Risk hb Oriented to surroundings, Maintained a safe environment. Abuse screen: Denies threats or abuse. Denies injuries from another. Nutritional screening: No deficits noted. Tuberculosis screening: No symptoms or risk factors identified. Assessment: 12:34 Reassessment: Patient appears in no apparent distress at this time. Patient and/or hb family updated on plan of care and expected duration. Pain level reassessed. Patient is alert, oriented x 3, equal unlabored respirations, skin warm/dry/pink. Vital Signs: 10:56 BP 118 / 71; Pulse 70; Resp 16; Temp 99; Pulse Ox 99% ; Weight 56.7 kg; Height 5 ft. 5 ll1 in. ; Pain 10/10; 10:56 Body Mass Index 20.80 (56.70 kg, 165.1 cm) ll1 10:56 Pain Scale: Adult ll1 ED Course: 10:38 Patient arrived in ED. am2 10:39 Kendell Yee MD is Private Physician. am2 10:39 Meredith Correia FNP-C is [facility]. kb 10:39 Keenan Merino MD is Attending Physician. kb 10:45 Arm band placed on Patient placed in an exam room, on a stretcher. ll1 10:47 Raya Gorman, RN is Primary Nurse. hb 10:57 Triage completed. hb 11:31 Foot Left 3 View XRAY In Process Unspecified. EDMS 12:00 Patient has correct armband on for positive identification. Provided Education on: hb meds, follow up. 12:35 No provider procedures requiring assistance completed. Patient did not have IV access hb during this emergency room visit. Administered Medications: 10:56 Drug: Ibuprofen PO 600 mg PO once Route: PO; hb 12:34 Follow up: Response: Medication administered at discharge. hb 12:27 Drug: Hydrocodone-Acetaminophen PO (7.5 mg-325 mg) 1 tabs PO once Route: PO; ll1 12:34 Follow up: Response: Medication administered at discharge. hb Medication: 12:34 VIS not applicable for this client. hb Outcome: 12:22 Discharge ordered by . kb 12:35 Discharged to home ambulatory, with family, hb 12:35 Condition: stable 12:35 Discharge instructions given to patient, Instructed on discharge instructions, follow up and referral plans. medication usage, Demonstrated understanding of instructions, follow-up care, medications, Prescriptions given X 1, 12:35 Patient left the ED. hb Signatures: Dispatcher [employer] EDMS Meredith Correia, CUSTOMER SERVICE SUPERVISOR-C CUSTOMER SERVICE SUPERVISOR-Raya Najera RN RN hb Nathalie Perez 2 Ronnie Romero, RN RN ll1 Corrections: (The following items were deleted from the chart) 10:58 10:44 PMHx: None; ll1 hb 12:21 10:56 Resp 16bpm; Temp 99F; 56.7 kg; Height 5 ft. 5 in.; BMI: 20.8; Pain 06/28, Adult; ll1 hb
--- NOTE | 2023-07-10 12:22 | EDPHYS ---
Physician Documentation [facility] Name: Yary Matamoros Age: 28 yrs Sex: Female : 1995 Arrival Date: 07/10/2023 Time: 10:37 Bed 11 Private MD: Kendell Yee ED Physician Keenan Merino HPI: 07/10 16:57 This 28 yrs old Female presents to ER via Ambulatory with complaints of Toe Injury. kb 16:57 Patient is a 28-year-old female with a history of seizures who presents for pain to kb left great toe after a piece of metal fell out of her car onto it.. Historical: - Allergies: 10:44 No Known Allergies; ll1 - PMHx: 10:57 Seizure; hb - PSHx: :44 None; ll1 - Immunization history:: Adult Immunizations up to date, Last tetanus immunization: up to date. - Social history:: Smoking status: Patient reports the use of cigarette tobacco products, denies chronic smoking, but will smoke occasionally. ROS: 16:57 Constitutional: Negative for fever, chills, and weight loss, kb 16:57 MS/extremity: Positive for laceration, pain, of the left first toe, 16:57 All other systems are negative, Exam: 16:57 Constitutional: This is a well developed, well nourished patient who is awake, alert, kb and in no acute distress. Head/Face: Normocephalic, atraumatic. ENT: Moist Mucous membranes Cardiovascular: Regular rate Respiratory: Respirations even and unlabored. No increased work of breathing. Talking in full sentences Skin: Warm, dry with normal turgor. Normal color. Neuro: Awake and alert, GCS 15, oriented to person, place, time, and situation. Moves all extremities. Normal gait. 16:57 Musculoskeletal/extremity: Extremities: grossly normal except: noted in the left first toe: contusion, laceration, pain, ROM: intact in all extremities, Circulation is intact in all extremities. Sensation intact. Weight bearing: able to fully bear weight, Vital Signs: 10:56 BP 118 / 71; Pulse 70; Resp 16; Temp 99; Pulse Ox 99% ; Weight 56.7 kg; Height 5 ft. 5 ll1 in. ; Pain 10/10; 10:56 Body Mass Index 20.80 (56.70 kg, 165.1 cm) ll1 10:56 Pain Scale: Adult ll1 MDM: 10:40 Patient medically screened. kb 16:57 Differential diagnosis: fracture, Dislocation, contusion, laceration, abrasion. Data kb reviewed: vital signs, nurses notes. Counseling: I had a detailed discussion with the patient and/or guardian regarding the historical points, exam findings, and any diagnostic results supporting the discharge/admit diagnosis, radiology results, the need for outpatient follow up, a orthopedic surgeon, to return to the emergency department if symptoms worsen or persist or if there are any questions or concerns that arise at home. ED course: Laceration is well approximated and requires no intervention for closure.. 07/10 10:43 Order name: Foot Left 3 View XRAY; Complete Time: 12:03 kb Administered Medications: 10:56 Drug: Ibuprofen PO 600 mg PO once Route: PO; hb 12:34 Follow up: Response: Medication administered at discharge. hb 12:27 Drug: Hydrocodone-Acetaminophen PO (7.5 mg-325 mg) 1 tabs PO once Route: PO; ll1 12:34 Follow up: Response: Medication administered at discharge. hb Disposition: 07/11 09:58 Co-signature as Attending Physician, Keenan Merino MD I reviewed the patient's care rn provided by the Advanced Practice Provider and agree with the diagnosis and treatment plan. Disposition Summary: 07/10/23 12:22 Discharge Ordered Notes: Location: Home kb Condition: Stable kb Diagnosis - Nondisplaced fracture of distal phalanx of left great toe kb Followup: kb - With: Emergency Department - When: As needed - Reason: Worsening of condition Followup: kb - With: Private Physician - When: 2 - 3 days - Reason: Recheck today's complaints, Continuance of care, Re-evaluation by your physician Discharge Instructions: - Discharge Summary Sheet kb - Toe Fracture, [id number]-ew-[id number] kb Forms: - Medication Reconciliation Form kb - Thank You Letter kb - Antibiotic Education kb - Prescription Opioid Use kb - Patient Portal Instructions kb - Leadership Thank You Letter kb - Work release form Prescriptions: - Diclofenac Sodium 75 mg Oral tablet, delayed release (enteric coated) - take 1 tablet ORAL route 2 times per day As needed; 30 tablet; Refills: 0, kb Product Selection Permitted Signatures: Dispatcher [employer] EDMeredith Olvera FNP-C DRAMATIC AGENT-Ckb Keenan Merino MD MD rn Raya Gorman RN RN Ronnie Esparza RN RN ll1 Corrections: (The following items were deleted from the chart) 07/10 10:58 10:44 PMHx: None; ll1 hb
[2023-07-10] MEDS ORDERED: HYDROCODONE/APAP 7.5/325 MG TAB ONE (12:36)
== END 2023-07-10 12:35 | disposition home or self-care (01) ==
LOC: ER 10:37
DX: S92.425A Nondisplaced fracture of distal phalanx of left great toe, initial encounter for closed fracture (principal)
CPT/HCPCS: 99283